=== PATIENT | female | born 1950 | race Caucasian/White ===

== ENCOUNTER → 2017-11-15 11:36 | Outpatient (CLI) | payer MEDICARE, OTHER, SELFPAY ==
--- NOTE | 2017-11-15 11:43 | HPBI_ITS ---
MAMMOGRAPHY - UNILATERAL SCREENING: LEFT BREAST REASON FOR EXAM: Female, 67 years old. Routine annual screening examination (unilateral). PERTINENT HISTORY: Personal history of breast cancer. Prior right mastectomy. Mother with breast cancer. TECHNIQUE: Digital unilateral breast juarez (3D mammographic acquisition) in the CC and MLO projections. 2-D mediolateral oblique (MLO) and craniocaudad (CC) views of both breasts were obtained. CAD: Full Field Digital Mammography with Computer Added Detection was performed. COMPARISON: Comparison is made with prior outside examination dated November 12, 2016 and May 21, 2014. FINDINGS: Breast Composition: There are scattered areas of fibroglandular density. There are no dominant masses or suspicious calcifications. A tissue clip marker is seen along the anterior Lateral aspect of the left breast. A tissue clip marker is also seen in the retroareolar region of the breast. No other significant abnormalities are identified. There has been no significant change since the prior study. HPBI/UNILAT LT SCRN W/CAD IMPRESSION: Stable unilateral screening mammogram. Yearly follow-up mammogram recommended. (A) ASSESSMENT CATEGORY: BIRADS Category 2: Benign. A letter regarding these results will be sent to the patient by the facility within 30 days. Approximately 10% of breast cancers are not detected by mammography. A normal mammogram should not delay biopsy of a clinically suspicious abnormality. [id number] Electronically Signed: Mitch Newman MD at 13:32 EST Tel [phone], Service support ,
== END ==
PROVIDERS: Family Provider Student in an Organized Health Care Education/Training Program; PCP Student in an Organized Health Care Education/Training Program; Visit Provider Nurse Practitioner
DX: Z12.31 Encounter for screening mammogram for malignant neoplasm of breast (principal); C50.911 Malignant neoplasm of unspecified site of right female breast
CPT/HCPCS: 77061; 77063; 77067; G0279

== ENCOUNTER 2019-01-07 10:35 | Observation (INO) | payer MEDICARE, OTHER, SELFPAY ==
[2019-01-07 10:36] VITALS: BP 135/83; PULSE 93; RESP 18; TEMP 36.8; O2SAT 98; BMI 22.1
--- NOTE | 2019-01-07 11:00 | ED.DCSUM_ITS ---
- ER Visit Summary Date of Service: 01/07/19 Chief Complaint: Vomiting and diarrhea History of Present Illness: The patient is a 68 F who presents for 6 days of vomiting and diarrhea. Patient is diabetic and states that she did not eat as she should have 6 days ago, resulting in her not feeling well and having subsequent diarrhea and vomiting. The diarrhea is loose stools without blood or mucus after every episode of oral intake. Patient states she is having improvement of her symptoms since yesterday, however now she feels dizzy, lightheadedness, and has a headache. She also has some fear fatigue. She had a fever at the onset of her symptoms but states that has resolved. She denies chest pain, shortness of breath, urinary symptoms, or any other complaints at this time. Patient has history of Campylobacter in November that was treated with 2 courses of antibiotics. She states that the symptoms are nothing like her symptoms at that time. She is has history of breast cancer status post mastectomy. She is not on blood thinners. Physical Examination: Vital signs: afebrile, hemodynamically stable, no hypoxia on room air General: well nourished, well developed, in no distress Skin: warm, dry, no rash, no pallor HEENT: normocephalic and atraumatic; PERRL, EOMI, dry mucous membranes Cardiovascular: regular rate and rhythm without murmurs, no peripheral edema, 2+ pulses all distal extremities Respiratory: No increased work of breathing, lungs are clear to auscultation bilaterally, no rales, rhonchi or wheezing Abdominal: Abdomen is soft, nontender with normoactive bowel sounds, no guarding or rebound, no masses MSK: Moves all extremities, no deformities, normal strength Neuro: Awake and alert, oriented ?4. No facial droop, sensation and motor function intact and symmetric Test Results: Abnormal Lab Results 01/07/19 01/07/19 01/07/19 11:15 11:15 12:27 WBC 6.9 RBC 4.61 Hgb 13.2 Hct 37.0 MCV 80.3 L MCH 28.6 MCHC 35.7 RDW 13.2 RDW Differential 37.7 Plt Count 306 MPV 9.3 Immature Gran % (Auto) 0.400 Neut % (Auto) 81.2 H Lymph % (Auto) 10.1 L [place] % (Auto) 7.8 Eos % (Auto) 0.1 Baso % (Auto) 0.4 Absolute Neuts (auto) 5.6 Absolute Lymphs (auto) 0.70 L Total Counted Not Reportable Sodium 134 L Potassium 2.1 L* Chloride 101 Carbon Dioxide 22.0 Anion Gap 11 BUN 36 H Creatinine 1.50 H Estim Creat Clear Calc 28.78 Est GFR (MDRD) Af Amer 45 L Est GFR (MDRD) Non-Af 37 L BUN/Creatinine Ratio 24.0 H Glucose 188 H Calcium 9.1 Total Bilirubin 0.40 AST 19 ALT 24 Alkaline Phosphatase 79 Total Protein 7.4 Albumin 3.2 Globulin 4.2 Albumin/Globulin Ratio 0.8 L Lipase 162 Urine Color Yellow Urine Clarity Clear Urine pH 5.0 Ur Specific [place] 1.015 Urine Protein 30 H Urine Glucose (UA) Normal Urine Ketones Negative Urine Occult Blood 25 H Urine Nitrite Negative Urine Bilirubin Negative Urine Urobilinogen Normal Ur Leukocyte Esterase 100 H Urine RBC 0 SEEN Urine WBC 0-5 SEEN Ur Squamous Epith Cells 0-5 SEEN Ur Transition Epith Cell 0-5 SEEN Urine Bacteria 1+ Hyaline Casts 5-10 SEEN Urine Mucus 0 SEEN Medications Given Potassium Chloride () 10 meq in 100 mls @ 100 mls/hr IV BOLUS Q1H MASHA Stop: 01/07/19 16:14 Lactated Ringer's () 1,000 mls @ 999 mls/hr IV .Q1H1M MASHA Stop: 01/07/19 13:05 Discontinued Medications Sodium Chloride () 1,000 mls @ 1,000 mls/hr IV .Q1H ONE Stop: 01/07/19 11:55 Last Admin: 01/07/19 11:17 Dose: 1,000 mls/hr Ketorolac Tromethamine (Toradol) 15 mg IV X1 ONE Stop: 01/07/19 10:57 Last Admin: 01/07/19 11:17 Dose: 15 mg Ondansetron HCl (Zofran) 4 mg IV X1 ONE Stop: 01/07/19 10:57 Last Admin: 01/07/19 11:17 Dose: 4 mg Emergency Department Course and Treatment: Patient presents for evaluation after 6 days of vomiting and diarrhea. Patient has no overt abdominal pain. At this time she is feeling dizzy, lightheaded, has a headache and feels fatigued. She states her vomiting and diarrhea have been improving and she has not had those symptoms today. Patient was given IV fluids for hydration. Patient was given Zofran for her nausea and Toradol for her headache. Lab work was performed to evaluate for any concerning diabetic crisis secondary to patient's ongoing GI symptoms and for any electrolyte derangements or dehydration secondary to poor oral intake this week. Patient had severe hypokalemia of 2.1. An EKG showed a sinus rhythm without any concerning changes related to electrolyte derangements. Patient's labs were consistent with dehydration. She had no anion gap, no significant hyper hyperglycemia (blood sugar 188), and had a normal bicarb. Urine is negative for ketones. Patient's labs were not concerning for any significant hyperglycemic or hypoglycemic crisis. Patient was started on IV potassium. Oral potassium was not given at this time due to concern for exacerbating nausea. Patient was discussed with Dr. Mckinney [facility] further management of dehydration and severe hypokalemia. Treatment Plan: [] Disposition: [] Impression: Hypokalemia, dehydration This note was generated with [employer] dictation software. It may contain incorrect words, spelling, and punctuation that were not noted in review of the chart prior to signing ED Disposition - Plan for ED Patient: Referrals: Star Lara DO [Primary Care Provider] -
[2019-01-07] MEDS: Ketorolac 30 MG/ML Syringe 15 MG IV (11:17)
[2019-01-07] MEDS: 0.9% Normal Saline 1,000 ML 1000 ML IV (11:17)
[2019-01-07] MEDS: Ondansetron 4 MG/2 ML Vial IV (11:17)
[2019-01-07 11:31] LABS: Absolute Neutrophil Count 5.6 X10^3/uL (2.0-7.7); Basophil# 0.03 X10^3/uL; Basophil% 0.4 % (0-1); Eosinophil# 0.01 X10^3/uL; Eosinophils% 0.1 % (0-5); Hemoglobin 13.2 g/dl (12.0-15.0); Lymphocyte % 10.1 % (19-41); Mean Corp Hgb Conc 35.7 g/gl (32-36); Mean Corpuscular Hgb 28.6 pg (27.0-32.0); Mean Corpuscular Volume 80.3 fL (81-99); Mean Platelet Vol. 9.3 fl (6.2-12.0); Monocyte# 0.54 X10^3/uL; Monocyte% 7.8 % (0-10); Neutrophil # 5.61 X10^3/uL (2.7-7.7); Neutrophil % 81.2 % (47-70); Platelet Count 306 K/mm3 (150-450); RBC Distribution Width CV 13.2 % (11.6-14.6); RBC Distribution Width SD 37.7 fl (35.1-43.9); Red Blood Count 4.61 M/mm3 (4.2-5.4); White Blood Count 6.9 K/mm3 (4.4-11.0)
[2019-01-07 11:35] LABS: POSITIVE COUNT NO; POSITIVE DIFFERENTIAL NO; POSITIVE MORPHOLOGY NO
[2019-01-07 11:53] LABS: ALB/GLOB Ratio 0.8 RATIO (0.9-2.4); AST(SGOT) 19 U/L (15-37); Alanine Aminotransfer ALT/SGPT 24 U/L (13-56); Albumin, Serum 3.2 g/dL (3.2-5.0); Alkaline Phosphatase 79 U/L (45-117); Anion Gap 11 (5-15); BUN 36 mg/dL (7-18); Calcium,Total 9.1 mg/dL (8.5-10.1); Chloride 101 mmol/L (98-107); EST Glomerular Filtration Rate 37 mL/min (>60); Est Glom Filt Rate - Afr Amer 45 mL/min (>60); Estimated Creatinine Clearance 28.78 ml/min; Globulin 4.2 g/dL (2.2-4.2); Glucose 188 mg/dL (74-106); Lipase 162 U/L (73-393); Potassium 2.1 mmol/L (3.5-5.1); Protein, Total 7.4 g/dL (6.4-8.2); Sodium Level 134 mmol/L (136-145)
--- NOTE | 2019-01-07 12:01 | EKG12_ITS ---
Test Reason : LOW POTASSIUM Blood Pressure : / mmHG Vent. Rate : 074 BPM Atrial Rate : 074 BPM P-R Int : 134 ms QRS Dur : 092 ms QT Int : 410 ms P-R-T Axes : 076 -03 024 degrees QTc Int : 455 ms Normal sinus rhythm Normal ECG Confirmed by GALLITO DRAKE, YAIR ([id number]), film editor VERO RAMIREZ ([id number]) on 01/10/2019 1:21:55 PM Referred By: Pete Mckinney Confirmed By:YAIR CONTI MD
[2019-01-07 12:31] LABS: Mucous, Urine 0 SEEN /hpf (<or=2+); Red Blood Cells-Urine 0 SEEN /hpf (0-5)
[2019-01-07 12:54] LABS: Color, Urine Yellow (Yellow); Glucose, Dipstick Normal (Normal); Ketone-Dipstick Negative (Negative); Leukocyte Esterase-Dipstick 100 /ul (Negative); Nitrite-Dipstick Negative (Negative); Occult Blood-Urine 25 /ul (Negative); Protein-Dipstick 30 mg/dl (Negative); Specific Gravity, Urine 1.015 (1.002-1.030); Urine Bilirubin Dipstick Negative (Negative); Urine Clarity Clear (Clear); Urine Urobilinogen Normal (Normal)
[2019-01-07 13:01] LABS: Bacteria 1+ /hpf (None Seen); Hyaline Cast 5-10 SEEN /lpf (0-5); Squamous Epithelial Cells - UA 0-5 SEEN /hpf (5-10); Transitional Epithelial - Ur 0-5 SEEN /hpf (0-5); White Blood Cells 0-5 SEEN /hpf (0-5)
--- NOTE | 2019-01-07 13:01 | NURSING ---
MED SURG ORA GASTROENTERITIS
--- NOTE | 2019-01-07 13:01 | NURSING ---
DR PAYAN IN ER
--- NOTE | 2019-01-07 13:18 | HP.PCM_ITS ---
Problem List (1) Near syncope Status: Acute (2) Hypokalemia Status: Acute (3) Acute gastroenteritis Status: Acute (4) DM type 2 (diabetes mellitus, type 2) Status: Chronic (5) Breast cancer, right breast Status: Acute (6) History of modified radical mastectomy of right breast Status: Acute History of Present Illness Date of Admission: 01/07/19 Chief Complaint: Nausea, vomiting and diarrhea for last 6 days The patient is a 68 year old F with history of type 2 diabetes mellitus came to ED with dizzy, lightheaded with generalized weakness. She has nausea, vomiting and diarrhea for last 6 days about 5 times daily. Vomiting and diarrhea is better today but she is feeling dizzy. Denies fever or chills. Denies abdominal pain/cramps or GI bleed. No flulike symptoms. In ED, basic blood work shows sodium 134, K2.1, BUN 36, creatinine 1.5. UA shows nitrite negative, LE 100. She denies lower urinary tract symptoms. Past Medical History Past Medical History (Chronic Problems): Chronic Problems DM type 2 (diabetes mellitus, type 2) (Chronic) Allergies No Known Allergies Allergy (Verified 01/07/19 10:38) Home Medications: Ambulatory Orders Medication Instructions Recorded Atorvastatin Calcium [Lipitor] 20 mg PO QHS 08/24/16 Hydrochlorothiazide [Hctz] 12.5 mg PO PRN PRN 08/24/16 Lansoprazole [Prevacid] 15 mg PO DAILY PRN 08/24/16 Lisinopril 10 mg PO DAILY 08/24/16 Metformin [Metformin HCl] 750 mg PO BID 08/24/16 Anastrozole [Arimidex] 1 mg PO DAILY 05/03/17 Metoprolol Tartrate [Lopressor 12.5 mg PO DAILY 05/03/17 (Beta Monique)] Allopurinol 100 mg PO DAILY #30 tablet 05/04/17 Smoking Status: Never smoker - *Family History Paternal History Items: Heart Disease - of massive NE Review of Systems Constitutional: Reports: Weakness HEENT: Denies: Head Aches, Sinus Congestion, Sinus Drainage Cardiovascular: Reports: Light Headedness. Denies: Chest Pain, Palpitations, Syncope Respiratory: Denies: Cough, Shortness of breath at rest, Sputum production Gastrointestinal: Reports: Diarrhea, Nausea, Vomiting. Denies: Abdominal Pain, Hematemesis, Hematochezia, Melena Genitourinary: Reports: - - Having less amount of urination. Denies: Dysuria, Frequency Musculoskeletal: Denies: Joint Pain, Joint Tenderness Skin: Denies: Rash, Wounds Neurological: Denies: Numbness, Tingling, Focal weakness Psychiatric: Denies: Anxiety, Depression, Homicidal Ideations, Suicidal Ideations Hematologic/ Lymphatic: Denies: Easy Bruising, Easy Bleeding VTE Information - Inpt Only VTE Present on Admission: No VTE Mechan Device Prophylaxis: None VTE Pharm Prophylaxis ordered?: Yes Patient Problems: Active and Suspected Problems Near syncope (Acute) Hypokalemia (Acute) Acute gastroenteritis (Acute) Breast cancer, right breast (Acute) History of modified radical mastectomy of right breast (Acute) - Physical Exam General: Alert, Oriented x3, Cooperative HEENT: Atraumatic, PERRLA, EOMI, Normocephalic Oral: Dry Mucosa Neck: Supple, No JVD, Negative Carotid Bruits Lungs: Clear to auscultation, Normal air movement, No wheeze, No rales Cardiovascular: Regular rate, Normal S1, Normal S2, No murmurs, Murmur - Systolic murmur present Abdomen: Bowel Sounds Present, Soft, Non Tender, Non-Distended Extremities: No edema, Capillary Refill Less than 3 Seconds Skin: No rashes, No breakdown Musculoskeletal: No Tenderness to Palpation of Joints or Extremities Lymphatic: No Cervical, Supraclavicular, or Inguinal Adenopathy Neurological: Cranial nerves II-XII grossly intact, Deep Tendon Reflexes 2+/4 and Symmetrical, Neuro grossly intact, Motor Exam 5/5 strength throughout Psych/Mental Status: Normal Affect, Appropriate Vital Signs Temp Pulse Resp BP Pulse Ox 98.2 F 93 18 135/83 H 98 01/07/19 10:36 01/07/19 10:36 01/07/19 10:36 01/07/19 10:36 01/07/19 10:36 Oxygen Delivery Method Room Air Weight: 121 lb Body Mass Index (BMI) 22.1 Finger Stick Blood Glucose 135 Laboratory Tests Past 24 Hrs 01/07/19 01/07/19 01/07/19 11:15 11:15 11:15 WBC 6.9 RBC 4.61 Hgb 13.2 Hct 37.0 MCV 80.3 L MCH 28.6 MCHC 35.7 RDW 13.2 RDW Differential 37.7 Plt Count 306 MPV 9.3 Immature Gran % (Auto) 0.400 Neut % (Auto) 81.2 H Lymph % (Auto) 10.1 L [place] % (Auto) 7.8 Eos % (Auto) 0.1 Baso % (Auto) 0.4 Absolute Neuts (auto) 5.6 Absolute Lymphs (auto) 0.70 L Total Counted Not Reportable Sodium 134 L Potassium 2.1 L* Chloride 101 Carbon Dioxide 22.0 Anion Gap 11 BUN 36 H Creatinine 1.50 H Estim Creat Clear Calc 28.78 Est GFR (MDRD) Af Amer 45 L Est GFR (MDRD) Non-Af 37 L BUN/Creatinine Ratio 24.0 H Glucose 188 H Calcium 9.1 Magnesium Pending Total Bilirubin 0.40 AST 19 ALT 24 Alkaline Phosphatase 79 Total Protein 7.4 Albumin 3.2 Globulin 4.2 Albumin/Globulin Ratio 0.8 L Lipase 162 Urine Color Urine Clarity Urine pH Ur Specific [place] Urine Protein Urine Glucose (UA) Urine Ketones Urine Occult Blood Urine Nitrite Urine Bilirubin Urine Urobilinogen Ur Leukocyte Esterase Urine RBC Urine WBC Ur Squamous Epith Cells Ur Transition Epith Cell Urine Bacteria Hyaline Casts Urine Mucus 01/07/19 12:27 WBC RBC Hgb Hct MCV MCH MCHC RDW RDW Differential Plt Count MPV Immature Gran % (Auto) Neut % (Auto) Lymph % (Auto) [place] % (Auto) Eos % (Auto) Baso % (Auto) Absolute Neuts (auto) Absolute Lymphs (auto) Total Counted Sodium Potassium Chloride Carbon Dioxide Anion Gap BUN Creatinine Estim Creat Clear Calc Est GFR (MDRD) Af Amer Est GFR (MDRD) Non-Af BUN/Creatinine Ratio Glucose Calcium Magnesium Total Bilirubin AST ALT Alkaline Phosphatase Total Protein Albumin Globulin Albumin/Globulin Ratio Lipase Urine Color Yellow Urine Clarity Clear Urine pH 5.0 Ur Specific [place] 1.015 Urine Protein 30 H Urine Glucose (UA) Normal Urine Ketones Negative Urine Occult Blood 25 H Urine Nitrite Negative Urine Bilirubin Negative Urine Urobilinogen Normal Ur Leukocyte Esterase 100 H Urine RBC 0 SEEN Urine WBC 0-5 SEEN Ur Squamous Epith Cells 0-5 SEEN Ur Transition Epith Cell 0-5 SEEN Urine Bacteria 1+ Hyaline Casts 5-10 SEEN Urine Mucus 0 SEEN Assessment/Plan All Active Problems Near syncope (Acute) Hypokalemia (Acute) Acute gastroenteritis (Acute) Breast cancer, right breast (Acute) History of modified radical mastectomy of right breast (Acute) The patient is a 68 year old F with history of type 2 diabetes mellitus came to ED with dizzy, lightheaded with generalized weakness. She has nausea, vomiting and diarrhea for last 6 days about 5 times daily. Vomiting and diarrhea is better today but she is feeling dizzy. Denies fever or chills. Denies abdominal pain/cramps or GI bleed. No flulike symptoms. In ED, basic blood work shows sodium 134, K2.1, BUN 36, creatinine 1.5. UA shows nitrite negative, LE 100. She denies lower urinary tract symptoms. 1. Near syncope most probably secondary to hypovolemia: Patient is being admitted on [facility] on telemetry. IV fluid normal saline. Orthostatic vitals. 2. Acute hypokalemia mostly secondary to nausea/vomiting and diarrhea: On IV n.p.o. potassium replacement. Magnesium is pending. EKG shows normal sinus rhythm at [address]-T changes. QTc 455 ms. No significant EKG changes of hypokalemia. 3. Acute gastroenteritis most probably viral: Stool for C. difficile, enteric bacteriology panel and stool for WBC ordered. Asymptomatic bacteriuria: UA shows bacteria 1+, LE 100, dullness 0-5. Patient does not have symptoms of burning micturition or increased frequency urgency. 4. Acute kidney injury secondary to hypovolemia, prerenal: Baseline creatinine runs around 1.0. Currently 1.5. BUN 36. Hold metformin, lisinopril and diuretic. 5 Diabetes mellitus type 2: Accu-Chek before meals and at bedtime and cover with NovoLog sliding scale. 6. Other comorbidities include right CA breast status post modified radical mastectomy and GERD. Home medication reconciliation done. DVT prophylaxis: On Lovenox 40 mg subcu daily. Laboratory Results 01/07/19 11:15: WBC 6.9, RBC 4.61, Hgb 13.2, Hct 37.0, MCV 80.3 L, MCH 28.6, MCHC 35.7, RDW 13.2, RDW Differential 37.7, Plt Count 306, MPV 9.3, Immature Gran % (Auto) 0.400, Neut % (Auto) 81.2 H, Lymph % (Auto) 10.1 L, [place] % (Auto) 7.8, Eos % (Auto) 0.1, Baso % (Auto) 0.4, Absolute Neuts (auto) 5.6, Absolute Lymphs (auto) 0.70 L, Total Counted Not Reportable 01/07/19 11:15: Sodium 134 L, Potassium 2.1 L*, Chloride 101, Carbon Dioxide 22.0, Anion Gap 11, BUN 36 H, Creatinine 1.50 H, Estim Creat Clear Calc 28.78, Est GFR (MDRD) Af Amer 45 L, Est GFR (MDRD) Non-Af 37 L, BUN/Creatinine Ratio 24.0 H, Glucose 188 H, Calcium 9.1, Total Bilirubin 0.40, AST 19, ALT 24, Alkaline Phosphatase 79, Total Protein 7.4, Albumin 3.2, Globulin 4.2, Albumin/Globulin Ratio 0.8 L, Lipase 162 01/07/19 11:15: Magnesium Pending 01/07/19 12:27: Urine Color Yellow, Urine Clarity Clear, Urine pH 5.0, Ur Specific [place] 1.015, Urine Protein 30 H, Urine Glucose (UA) Normal, Urine Ketones Negative, Urine Occult Blood 25 H, Urine Nitrite Negative, Urine Bilirubin Negative, Urine Urobilinogen Normal, Ur Leukocyte Esterase 100 H, Urine RBC 0 SEEN, Urine WBC 0-5 SEEN, Ur Squamous Epith Cells 0-5 SEEN, Ur Transition Epith Cell 0-5 SEEN, Urine Bacteria 1+, Hyaline Casts 5-10 SEEN, Urine Mucus 0 SEEN Code Visit OBSV E&M: [id number] Initial observation care L3
[2019-01-07] MEDS: Lactated Ringers 1,000 ML 999 ML IV (13:29)
[2019-01-07] MEDS: Potassium Chloride 10mEq/100mL 10 MEQ/100 ML IV.SOLN. 100 MEQ IV BOLUS ×4 (13:29→16:43)
[2019-01-07 13:32] VITALS: BP 147/66; PULSE 75; RESP 13; O2SAT 100
[2019-01-07 13:54] LABS: Magnesium 1.6 mg/dL (1.6-2.6)
[2019-01-07 15:00] VITALS: BP 123/63; PULSE 73; RESP 18; TEMP 36.6; O2SAT 100
[2019-01-07 15:03] VITALS: BMI 23.0
[2019-01-07] MEDS: 0.9% Normal Saline 1,000 ML 150 ML IV (16:51)
[2019-01-07 17:10] LABS: Bedside Glucose 100 mg/dL (70-110)
[2019-01-07 19:36] VITALS: PULSE 74
[2019-01-07 21:00] VITALS: BP 120/54; PULSE 74; RESP 16; TEMP 36.9; O2SAT 100
[2019-01-07 22:00] VITALS: PULSE 76
[2019-01-07] MEDS: Atorvastatin Calcium 20 MG Tablet PO (22:07)
[2019-01-07 22:11] LABS: Bedside Glucose 129 mg/dL (70-110)
[2019-01-08] VITALS (7 sets, daily range): BP systolic 114–128; BP diastolic 63–70; PULSE 59–82; RESP 14–18; TEMP 36.4–37; O2SAT 98–100
[2019-01-08] MEDS: Acetaminophen 325 MG Tablet 650 MG PO (05:06)
[2019-01-08 05:36] LABS: Bedside Glucose 117 mg/dL (70-110)
[2019-01-08 06:00] LABS: Absolute Lymphocyte Count 1.14 X10^3/ul (0.83-4.51); Absolute Neutrophil Count 2.9 X10^3/uL (2.0-7.7); Basophil# 0.02 X10^3/uL; Basophil% 0.4 % (0-1); Eosinophil# 0.07 X10^3/uL; Eosinophils% 1.5 % (0-5); Hematocrit 30.1 % (37-47); Hemoglobin 10.3 g/dl (12.0-15.0); Lymphocyte # 1.14 X10^3/ul (4.0); Lymphocyte % 24.9 % (19-41); Mean Corp Hgb Conc 34.2 g/gl (32-36); Mean Corpuscular Hgb 28.3 pg (27.0-32.0); Mean Corpuscular Volume 82.7 fL (81-99); Mean Platelet Vol. 8.6 fl (6.2-12.0); Monocyte# 0.44 X10^3/uL; Monocyte% 9.6 % (0-10); Neutrophil # 2.88 X10^3/uL (2.7-7.7); Neutrophil % 63.2 % (47-70); Platelet Count 232 K/mm3 (150-450); RBC Distribution Width CV 13.7 % (11.6-14.6); RBC Distribution Width SD 42.2 fl (35.1-43.9); Red Blood Count 3.64 M/mm3 (4.2-5.4); White Blood Count 4.6 K/mm3 (4.4-11.0)
[2019-01-08 06:16] LABS: POSITIVE COUNT NO; POSITIVE DIFFERENTIAL NO; POSITIVE MORPHOLOGY NO
[2019-01-08 06:41] LABS: Anion Gap 6 (5-15); BUN 23 mg/dL (7-18); BUN/Creat Ratio 26.9 RATIO (10-20); Calcium,Total 8.4 mg/dL (8.5-10.1); Chloride 110 mmol/L (98-107); Creatinine, Serum 0.85 mg/dL (0.55-1.02); EST Glomerular Filtration Rate 70 mL/min (>60); Est Glom Filt Rate - Afr Amer 85 mL/min (>60); Glucose 110 mg/dL (74-106); Potassium 3.3 mmol/L (3.5-5.1); Sodium Level 141 mmol/L (136-145)
[2019-01-08] MEDS: Allopurinol 100 MG Tablet PO (07:34)
[2019-01-08] MEDS: 0.9% NaCl Peripheral Flush Adult/Peds IV (08:52)
[2019-01-08] MEDS: Metoprolol Tartrate 25 MG Tablet 12.5 MG PO (08:53)
[2019-01-08] MEDS: Lisinopril 10 MG Tablet PO (08:53)
[2019-01-08] MEDS: Anastrozole 1 MG Tablet PO (08:53)
[2019-01-08] MEDS: Famotidine 20 MG Tablet PO (08:54)
[2019-01-08] MEDS: 0.9% Normal Saline 1,000 ML 500 ML IV (09:04)
--- NOTE | 2019-01-08 09:15 | DCINST_ITS ---
- Discharge Diagnoses Current Active Problems: Current Active and Chronic Problems Near syncope (Acute) Hypokalemia (Acute) Acute gastroenteritis (Acute) DM type 2 (diabetes mellitus, type 2) (Chronic) Breast cancer, right breast (Acute) History of modified radical mastectomy of right breast (Acute) You will use the following diet at home:: Calorie/Carbohydrate Controlled (specify 1200, 1400, etc) Your food should be the consistency of: Regular Discharge Activity: May Not Drive - FOR 2-3 DAYS, May not drive while taking narcotic pain medications. Weight Bearing Status: Weight bearing as tolerated Call your doctor if you observe: Fever of 101 or Higher, Inability to have a bowel movement, Shortness of breath, Chest pain, Increased palpitations (irregular heartbeat) Allergies/Adverse Reactions: Allergies No Known Allergies Allergy (Verified 01/07/19 10:38) Medications to take at Discharge Atorvastatin Calcium [Lipitor] 20 mg PO QHS 08/24/16 Hydrochlorothiazide [Hctz] 12.5 mg PO PRN PRN 08/24/16 Lansoprazole [Prevacid] 15 mg PO DAILY PRN 08/24/16 Lisinopril 10 mg PO DAILY 08/24/16 Metformin [Metformin HCl] 750 mg PO BID 08/24/16 Anastrozole [Arimidex] 1 mg PO DAILY 05/03/17 Metoprolol Tartrate [Lopressor (beta amy)] 12.5 mg PO DAILY 05/03/17 Allopurinol 100 mg PO DAILY #30 tablet 05/04/17 Primary Care Physician: Star Lara DO [Primary Care Provider] - Please follow up with your Primary Care Physician in: IN 1-2 WEEK Test Results: Test results from this visit will be discussed in further detail at your follow- up appointment, if applicable.
--- NOTE | 2019-01-08 09:16 | DS.PCM_ITS ---
Discharge Date and Diagnosis Date of Admission: 01/07/19 Date of Discharge: 01/08/19 - Primary Discharge Diagnosis Active and Suspected Problems Near syncope (Acute) Hypokalemia (Acute) Acute gastroenteritis (Acute) Breast cancer, right breast (Acute) History of modified radical mastectomy of right breast (Acute) - Secondary Discharge Diagnosis Chronic Problems DM type 2 (diabetes mellitus, type 2) (Chronic) Hospital Course and Treatment Summary of Care Provided: [] The patient is a 68 year old F with history of type 2 diabetes mellitus came to ED with dizzy, lightheaded with generalized weakness. She has nausea, vomiting and diarrhea for last 6 days about 5 times daily. Vomiting and diarrhea is better today but she is feeling dizzy. Denies fever or chills. Denies abdomi nal pain/cramps or GI bleed. No flulike symptoms. In ED, basic blood work shows sodium 134, K2.1, BUN 36, creatinine 1.5. UA shows nitrite negative, LE 100. She denies lower urinary tract symptoms. 1. Near syncope most probably secondary to hypovolemia: Patient is being admitted on [facility] on telemetry. IV fluid normal saline. Vital signs are stable. No hypotension. 2. Acute hypokalemia mostly secondary to nausea/vomiting and diarrhea: EKG shows normal sinus rhythm at [address]-T changes. QTc 455 ms. No significant EKG changes of hypokalemia. Potassium being replaced. Repeat potassium was 3.3 for which 2 doses of K. Dur 40 M EQ. Magnesium 1.6. Magnesium 400 mg 1 dose given. 3. Acute gastroenteritis Most probably secondary to Salmonella: She had mild diarrhea and is almost resolved with one yesterday and formed stool today. Occult stool blood was positive. Stool for WBC positive. C. difficile negative. There is drop in hemoglobin from 13.2-10.3 but she was also hemoconcentrated and dehydrated during admission. She did not require blood transfusion. Hemodynamically stable. Antibiotic not indicated for mild Salmonella infection with minimal or asymptomatic patient Asymptomatic bacteriuria: UA shows bacteria 1+, LE 100, dullness 0-5. Patient does not have symptoms of burning micturition or increased frequency urgency. UTI ruled out 4. Acute kidney injury secondary to hypovolemia, prerenal: Baseline creatinine runs around 1.0. Currently 1.5. BUN 36. Hold metformin, lisinopril and diuretic. Resolved. Repeat creatinine 0.85. 5 Diabetes mellitus type 2: Accu-Chek before meals and at bedtime and cover with NovoLog sliding scale. 6. Other comorbidities include right CA breast status post modified radical mastectomy and GERD. Home medication reconciliation done. DVT prophylaxis: On Lovenox 40 mg subcu daily. Discharge medication reconciliation done. Discharge follow-up instructions completed. Discharge process discussed with the patient and all questions were answered to patient's satisfaction. Subjective: Seen and examined. Vitals are stable. Heart rate 74/min. No diarrhea. Patient had one soft bowel movement today. Yesterday she had one, loose bowel movement. - Physical Exam General: Alert, Oriented x3, Cooperative HEENT: Atraumatic, PERRLA, EOMI, Normocephalic Neck: Supple, No JVD, Negative Carotid Bruits Lungs: Clear to auscultation, Normal air movement Cardiovascular: Regular rate, Regular Rhythm, Normal S1, Normal S2, No murmurs Abdomen: Bowel Sounds Present, Soft, Non Tender, Non-Distended Extremities: No edema, Capillary Refill Less than 3 Seconds Skin: No rashes, No breakdown Musculoskeletal: No Tenderness to Palpation of Joints or Extremities, Arthritic Changes Neurological: Cranial nerves II-XII grossly intact Psych/Mental Status: Normal Affect, Appropriate Vital Signs Temp Pulse Resp BP Pulse Ox 97.5 F L 78 14 114/63 100 01/08/19 03:00 01/08/19 08:53 01/08/19 03:00 01/08/19 03:00 01/08/19 03:00 Oxygen Delivery Method Room Air Weight: 126 lb Body Mass Index (BMI) 23.0 Finger Stick Blood Glucose 135 Intake and Output for Last 24 Hours 01/06/19 01/07/19 01/08/19 23:59 23:59 23:59 Intake Total 1972 100 / 100 Output Total 200 / 200 Balance 1773 / 1773 100 / 100 Microbiology Past 72 Hours 01/07/19 19:45 C. difficile DNA Amplification - Final Stool 01/07/19 19:45 Stool Occult Blood (LUZ MARINA) - Final Stool Occult Blood Positive 01/07/19 19:45 Stool Lactoferrin - Final Stool Laboratory Tests Past 24 Hrs 01/07/19 01/07/19 01/07/19 11:15 11:15 11:15 WBC 6.9 RBC 4.61 Hgb 13.2 Hct 37.0 MCV 80.3 L MCH 28.6 MCHC 35.7 RDW 13.2 RDW Differential 37.7 Plt Count 306 MPV 9.3 Immature Gran % (Auto) 0.400 Neut % (Auto) 81.2 H Lymph % (Auto) 10.1 L [place] % (Auto) 7.8 Eos % (Auto) 0.1 Baso % (Auto) 0.4 Absolute Neuts (auto) 5.6 Absolute Lymphs (auto) 0.70 L Total Counted Not Reportable Sodium 134 L Potassium 2.1 L* Chloride 101 Carbon Dioxide 22.0 Anion Gap 11 BUN 36 H Creatinine 1.50 H Estim Creat Clear Calc 28.78 Est GFR (MDRD) Af Amer 45 L Est GFR (MDRD) Non-Af 37 L BUN/Creatinine Ratio 24.0 H Glucose 188 H Calcium 9.1 Magnesium 1.6 Total Bilirubin 0.40 AST 19 ALT 24 Alkaline Phosphatase 79 Total Protein 7.4 Albumin 3.2 Globulin 4.2 Albumin/Globulin Ratio 0.8 L Lipase 162 TSH Urine Color Urine Clarity Urine pH Ur Specific [place] Urine Protein Urine Glucose (UA) Urine Ketones Urine Occult Blood Urine Nitrite Urine Bilirubin Urine Urobilinogen Ur Leukocyte Esterase Urine RBC Urine WBC Ur Squamous Epith Cells Ur Transition Epith Cell Urine Bacteria Hyaline Casts Urine Mucus 01/07/19 01/08/19 01/08/19 12:27 05:25 05:25 WBC 4.6 RBC 3.64 L Hgb 10.3 L Hct 30.1 L MCV 82.7 MCH 28.3 MCHC 34.2 RDW 13.7 RDW Differential 42.2 Plt Count 232 MPV 8.6 Immature Gran % (Auto) 0.400 Neut % (Auto) 63.2 Lymph % (Auto) 24.9 [place] % (Auto) 9.6 Eos % (Auto) 1.5 Baso % (Auto) 0.4 Absolute Neuts (auto) 2.9 Absolute Lymphs (auto) 1.14 Total Counted Not Reportable Sodium 141 Potassium 3.3 L Chloride 110 H Carbon Dioxide 25.0 Anion Gap 6 BUN 23 H Creatinine 0.85 Estim Creat Clear Calc 50.80 Est GFR (MDRD) Af Amer 85 Est GFR (MDRD) Non-Af 70 BUN/Creatinine Ratio 26.9 H Glucose 110 H Calcium 8.4 L Magnesium Total Bilirubin AST ALT Alkaline Phosphatase Total Protein Albumin Globulin Albumin/Globulin Ratio Lipase TSH 1.30 Urine Color Yellow Urine Clarity Clear Urine pH 5.0 Ur Specific [place] 1.015 Urine Protein 30 H Urine Glucose (UA) Normal Urine Ketones Negative Urine Occult Blood 25 H Urine Nitrite Negative Urine Bilirubin Negative Urine Urobilinogen Normal Ur Leukocyte Esterase 100 H Urine RBC 0 SEEN Urine WBC 0-5 SEEN Ur Squamous Epith Cells 0-5 SEEN Ur Transition Epith Cell 0-5 SEEN Urine Bacteria 1+ Hyaline Casts 5-10 SEEN Urine Mucus 0 SEEN POC Glucose 01/08/19 01/07/19 01/07/19 05:28 21:58 16:49 POC Glucose 117 H 129 H 100 Discharge Activity: May Not Drive - FOR 2-3 DAYS, May not drive while taking narcotic pain medications. Weight Bearing Status: Weight bearing as tolerated Call your doctor if you observe: Fever of 101 or Higher, Inability to have a bowel movement, Shortness of breath, Chest pain, Increased palpitations (irregular heartbeat) Home Medications: Medications to take at Discharge Atorvastatin Calcium [Lipitor] 20 mg PO QHS 08/24/16 Hydrochlorothiazide [Hctz] 12.5 mg PO PRN PRN 08/24/16 Lansoprazole [Prevacid] 15 mg PO DAILY PRN 08/24/16 Lisinopril 10 mg PO DAILY 08/24/16 Metformin [Metformin HCl] 750 mg PO BID 08/24/16 Anastrozole [Arimidex] 1 mg PO DAILY 05/03/17 Metoprolol Tartrate [Lopressor (beta amy)] 12.5 mg PO DAILY 05/03/17 Allopurinol 100 mg PO DAILY #30 tablet 05/04/17 Primary Care Physician: Star Lara DO [Primary Care Provider] - Please follow up with your Primary Care Physician in: IN 1-2 WEEK Medical Necessity - Tobacco Use Smoking Status: Never smoker Meaningful Use Info Meaningful Use Diagnoses (Choose all that apply): None applicable Code Visit OBSV E&M: 26459 Observation care discharge
[2019-01-08] MEDS: Magnesium Oxide 400 MG Tablet PO (10:12)
== END 2019-01-08 11:40 | disposition home or self-care (01) ==
LOC: ED 10:58 → MS3 13:30
PROVIDERS: Admitting Provider Internal Medicine; Emergency Provider Emergency Medicine; Family Provider Student in an Organized Health Care Education/Training Program; PCP Student in an Organized Health Care Education/Training Program; Referring Provider Internal Medicine; Visit Provider Internal Medicine
DX: R55 Syncope and collapse (principal); K52.9 Noninfective gastroenteritis and colitis, unspecified; D50.0 Iron deficiency anemia secondary to blood loss (chronic); E11.9 Type 2 diabetes mellitus without complications; Z85.3 Personal history of malignant neoplasm of breast; E87.6 Hypokalemia; E86.0 Dehydration; Z79.899 Other long term (current) drug therapy; Z79.84 Long term (current) use of oral hypoglycemic drugs; N17.9 Acute kidney failure, unspecified; K21.9 Gastro-esophageal reflux disease without esophagitis
CPT/HCPCS: 36415; 80048; 80053; 81001; 82274; 82962; 83630; 83690; 83735; 84443; 85025; 87493; 87506; 93005; 96361; 96374; 96375; 99218; 99284; J7030; J7040; J7120; A4216; G0378; J2405

== ENCOUNTER 2019-04-06 00:04 | Observation (INO) | payer MEDICARE, OTHER, SELFPAY ==
[2019-04-06] VITALS (9 sets, daily range): BP systolic 113–151; BP diastolic 56–82; PULSE 57–84; RESP 14–18; TEMP 36.7–36.9; O2SAT 96–100; BMI 22.1; BMI 23.3; BMI 23.4
--- NOTE | 2019-04-06 00:48 | RAD_ITS ---
STUDY: X-RAY CHEST REASON FOR EXAM: Female, 68 years old. Chest pain TECHNIQUE: 2 views COMPARISON: None. FINDINGS: The lungs are clear and expanded. There is no demonstrated pleural abnormality. Normal size heart. Normal mediastinum and meghan. Normal visualized pulmonary arteries. Normal visualized aortic arch and descending thoracic aorta. Degenerative changes of the thoracic spine Normal visualized ribs, clavicles, and shoulders. There is no demonstrated abnormality of the visualized soft tissue structures of the upper abdomen. RAD/Chest PA and Lateral IMPRESSION: No acute findings in the lungs Electronically Signed: Haider Arias MD at 1:58 EDT Tel , Service support ,
--- NOTE | 2019-04-06 00:48 | EKG12_ITS ---
Test Reason : CP Blood Pressure : / mmHG Vent. Rate : 067 BPM Atrial Rate : 067 BPM P-R Int : 148 ms QRS Dur : 100 ms QT Int : 394 ms P-R-T Axes : 059 001 033 degrees QTc Int : 416 ms Normal sinus rhythm Incomplete right bundle branch block Cannot rule out Anterior infarct , age undetermined Abnormal ECG Confirmed by CECILLE DRAKE, DELFINO ([id number]), newspaper copy editor TAMELA CASTANON ([id number]) on 04/09/2019 12:35:40 PM Referred By: AUGUSTINE Confirmed By:DELFINO ODEN MD
[2019-04-06 00:57] LABS: Absolute Lymphocyte Count 1.47 X10^3/uL (0.83-4.51); Absolute Neutrophil Count 4.2 X10^3/uL (2.0-7.7); Basophil# 0.03 X10^3/uL; Basophil% 0.5 % (0-1); Eosinophil# 0.21 X10^3/uL; Eosinophils% 3.3 % (0-5); Hemoglobin 12.2 g/dL (12.0-15.0); Lymphocyte # 1.47 X10^3/ul (4.0); Lymphocyte % 22.9 % (19-41); Mean Corp Hgb Conc 33.9 g/dL (32-36); Mean Corpuscular Hgb 29.2 pg (27.0-32.0); Mean Corpuscular Volume 86.1 fL (81-99); Mean Platelet Vol. 9.2 fl (6.2-12.0); Monocyte# 0.54 X10^3/uL; Monocyte% 8.4 % (0-10); NRBC Flagged by Analyzer 0 % (0-5); Neutrophil # 4.16 X10^3/uL (2.7-7.7); Neutrophil % 64.6 % (47-70); Platelet Count 265 K/mm3 (150-450); RBC Distribution Width CV 12.9 % (11.6-14.6); RBC Distribution Width SD 40.2 fl (35.1-43.9); Red Blood Count 4.18 M/mm3 (4.2-5.4); White Blood Count 6.4 K/mm3 (4.4-11.0)
[2019-04-06 01:10] LABS: Anion Gap 6 (5-15); BUN 25 mg/dL (7-18); BUN/Creat Ratio 32.6 RATIO (10-20); Calcium,Total 9.5 mg/dL (8.5-10.1); Chloride 102 mmol/L (98-107); Creatinine, Serum 0.77 mg/dL (0.55-1.02); EST Glomerular Filtration Rate 80 mL/min (>60); Est Glom Filt Rate - Afr Amer 96 mL/min (>60); Estimated Creatinine Clearance 43.18 ml/min; Glucose 111 mg/dL (74-106); Potassium 3.4 mmol/L (3.5-5.1); Sodium Level 133 mmol/L (136-145)
[2019-04-06] MEDS: Nitroglycerin SL (ED/IMG/CATH) 0.4 MG TABLET SUBLINGUAL (01:18)
--- NOTE | 2019-04-06 01:36 | ED.DCSUM_ITS ---
- ER Visit Summary Date of Service: 04/06/19 Chief Complaint: Chest pain History of Present Illness: The patient is a 68 F who states she really has not felt well all day. However about 3-1/2 hours ago she developed a dull upper chest pain which radiated to her left shoulder. She rates this as 5 out of 10. She complains of associated nausea, shortness of breath, diaphoresis. No vomiting or diarrhea. She does complain some headache. No fevers. No history of coronary disease but she does have a history of diabetes, hypertension, hyperlipidemia Physical Examination: Afebrile vitals unremarkable No distress Skin warm and dry Moist mucous membranes Heart regular rate and rhythm no murmur Lungs are clear without rales rhonchi or wheezing Abdomen soft and nontender Palpable radial pulses Extremities nontender without edema Alert Test Results: EKG shows normal sinus rhythm at a rate of 67 with no acute ischemic changes. Two-view chest x-rays read by me shows no acute process, radiology read pending. Labs notable for sodium 133, potassium 3.4. Troponin negative. Emergency Department Course and Treatment: Patient already took 2 baby aspirin before presentation to the emergency department. She was given sublingual nitroglycerin. She states this really just change the character of her pain. She no longer has any abdominal pain but just has some burning in the left shoulder but severity is about the same at 45. I do feel she needs repeat laboratory studies and likely stress testing. Patient will be discussed with the hospitalist and admitted. Treatment Plan: [] Disposition: Admit Impression: Chest pain This note was generated with [employer] dictation software. It may contain incorrect words, spelling, and punctuation that were not noted in review of the chart prior to signing ED Disposition - Plan for ED Patient: Referrals: Star Lara DO [Primary Care Provider] -
--- NOTE | 2019-04-06 01:40 | PCM.HP.STD ---
Problem List (1) Chest pain Status: Acute (2) Hypokalemia Status: Acute (3) DM type 2 (diabetes mellitus, type 2) Status: Chronic (4) History of modified radical mastectomy of right breast Status: Chronic (5) Breast cancer, right breast Status: Acute History of Present Illness Date of Admission: 04/06/19 Chief Complaint: chest pain The patient is a 68 year old F with a significant history of breast cancer status post radical mastectomy; DM Type II; hypertension and hyperlipidemia who presented to the emergency department with left-sided chest pain that started few hours before presentation. She describes her chest pain as aching. Her chest pain radiates to her left arm she described the pain in her left arm as a burning sensation. She denies any aggravating or ameliorating factors to the pain. Her symptoms started earlier on the day of presentation with nausea; fatigue; headache and diaphoresis. She took 2 tablets of baby aspirin that did not help her pain. At the emergency department she was given nitroglycerin that eased the pain somewhat. Patient reports that her father from heart attack at the age of 59. Patient was evaluated with stress test in 2011. Past Medical History Past Medical History (Chronic Problems): Chronic Problems DM type 2 (diabetes mellitus, type 2) (Chronic) History of modified radical mastectomy of right breast (Chronic) Allergies No Known Allergies Allergy (Verified 04/06/19 00:07) Home Medications: Ambulatory Orders Medication Instructions Recorded Atorvastatin Calcium [Lipitor] 20 mg PO QHS 08/24/16 Hydrochlorothiazide [Hctz] 12.5 mg PO PRN PRN 08/24/16 Lansoprazole [Prevacid] 15 mg PO DAILY PRN 08/24/16 Lisinopril 10 mg PO DAILY 08/24/16 Metformin [Metformin HCl] 750 mg PO BID 08/24/16 Anastrozole [Arimidex] 1 mg PO DAILY 05/03/17 Metoprolol Tartrate [Lopressor 12.5 mg PO DAILY 05/03/17 (beta amy)] Allopurinol 100 mg PO DAILY #30 tablet 05/04/17 Surgical History: hysterectomy - [facility], mastectomy Lives: Spouse/ Significant Other Smoking Status: Never smoker Alcohol: Rare - *Family History Paternal History Items: Heart Disease - of massive HI Maternal History Items: Cancer - Her mother had breast cancer at the age of 66, COPD - Her mother had COPD. However she was a smoker. Review of Systems Constitutional: Reports: Fatigue. Denies: Chills, Fever, Weight Change HEENT: Reports: Head Aches. Denies: Sinus Congestion, Sinus Drainage Cardiovascular: Reports: Chest Pain. Denies: Palpitations Respiratory: Denies: Cough, Shortness of breath at rest, Sputum production Gastrointestinal: Reports: Nausea. Denies: Abdominal Pain, Vomiting Genitourinary: Denies: Dysuria Musculoskeletal: Denies: Joint Pain, Joint Tenderness Skin: Denies: Rash, Wounds Neurological: Denies: Numbness, Tingling, Focal weakness Psychiatric: Denies: Anxiety, Depression, Homicidal Ideations, Suicidal Ideations Hematologic/ Lymphatic: Denies: Easy Bruising, Easy Bleeding VTE Information - Inpt Only VTE Present on Admission: No VTE Mechan Device Prophylaxis: None VTE Pharm Prophylaxis ordered?: Yes Patient Problems: Active and Suspected Problems Chest pain (Acute) - Physical Exam General: Alert, Oriented x3, Cooperative HEENT: Atraumatic, PERRLA, EOMI, Normocephalic Neck: Supple, No JVD, Negative Carotid Bruits Lungs: Clear to auscultation, Normal air movement Cardiovascular: Regular rate, No murmurs Abdomen: Bowel Sounds Present, Soft, Non Tender Extremities: No edema, Capillary Refill Less than 3 Seconds Skin: No rashes, No breakdown Musculoskeletal: No Tenderness to Palpation of Joints or Extremities Neurological: Cranial nerves II-XII grossly intact Psych/Mental Status: Normal Affect, Appropriate Vital Signs Temp Pulse Resp BP Pulse Ox 98.1 F 62 14 120/60 97 04/06/19 00:05 04/06/19 01:04 04/06/19 01:04 04/06/19 01:04 04/06/19 01:04 Oxygen Delivery Method Room Air Weight: 58.06 kg Body Mass Index (BMI) 23.3 Finger Stick Blood Glucose 135 Laboratory Tests Past 24 Hrs 04/06/19 04/06/19 00:30 00:30 WBC 6.4 RBC 4.18 L Hgb 12.2 Hct 36.0 L MCV 86.1 MCH 29.2 MCHC 33.9 RDW Std Deviation 40.2 RDW Coeff of [place] 12.9 Plt Count 265 MPV 9.2 Immature Gran % (Auto) 0.300 Neut % (Auto) 64.6 Lymph % (Auto) 22.9 [place] % (Auto) 8.4 Eos % (Auto) 3.3 Baso % (Auto) 0.5 Absolute Neuts (auto) 4.2 Absolute Lymphs (auto) 1.47 Absolute Nucleated RBC 0.00 Nucleated RBC % 0 Sodium 133 L Potassium 3.4 L Chloride 102 Carbon Dioxide 25.0 Anion Gap 6 BUN 25 H Creatinine 0.77 Estim Creat Clear Calc 43.18 Est GFR (MDRD) Af Amer 96 Est GFR (MDRD) Non-Af 80 BUN/Creatinine Ratio 32.6 H Glucose 111 H Calcium 9.5 Troponin I < 0.015 Assessment/Plan All Active Problems Near syncope (Resolved) Hypokalemia (Acute) Acute gastroenteritis (Resolved) Breast cancer, right breast (Acute) Chest pain (Acute) The patient is a 68 year old F with a significant history of breast cancer status post radical mastectomy; DM Type II; hypertension and hyperlipidemia who presented to the emergency department with left-sided chest pain that radiated to her left arm. Chest Pain Admit to a monitored bed on PCU Chest x-ray was interpreted by radiologist as no acute cardiopulmonary findings. CXR independently reviewed confirms no acute cardiopulmonary process. EKG independently reviewed confirms normal sinus rhythm with incomplete right bundle branch block as well as probable indeterminate infarct in lead V1 to V5. Old records reviewed showed : EKG on the 01/07/2019 showed normal sinus rhythm with no incomplete right bundle branch block but with Q waves in leads V1 AND V2 Stress echocardiogram on 05/04/2012 showed normal resting EKG with right bundle branch block. Normal resting echo with Definity. ASA 81 mg p.o. daily SL NTG 0.4 mg prn as needed for chest pain Morphine as needed for pain We will check lipid panel. Statin: Home Lipitor continued Serial cardiac enzymes Stat EKG as needed for chest pain Lisinopril and metoprolol continued Treadmill stress test in the AM if the cardiac enzymes are negative. Patient thinks she can tolerate walking on the treadmill. Hypokalemia On presentation potassium was mildly low. Replaced at the emergency department. Trend BMP Hyponatremia On presentation her sodium was mildly low at 133. This could be due to use of hydrochlorothiazide. Repeat BMP. Hypertension On presentation her blood pressure was fairly stable Metoprolol; lisinopril and hydrochlorothiazide continued Trend blood pressure and adjust blood pressure medication Diabetes mellitus On presentation her blood glucose was within goal. Would hold home metformin since it is too early in her admission. Accu-Chek with correction scale insulin ordered. History of breast cancer status post radical mastectomy Arimidex continued DVT prophylaxis SubCutaneous Lovenox Code Visit OBSV E&M: 73296 Initial observation care L3
--- NOTE | 2019-04-06 03:19 | EKG12_ITS ---
Test Reason : CP ADMIT Blood Pressure : / mmHG Vent. Rate : 058 BPM Atrial Rate : 058 BPM P-R Int : 152 ms QRS Dur : 102 ms QT Int : 428 ms P-R-T Axes : 061 010 032 degrees QTc Int : 420 ms Sinus bradycardia Incomplete right bundle branch block Borderline ECG When compared with ECG of 07-JAN-2019 12:28, No significant change was found Confirmed by CECILLE DRAKE, DELFINO ([id number]), editor book TAMELA CASTANON ([id number]) on 04/10/2019 2:01:07 PM Referred By: DR COON Confirmed By:DELFINO ODEN MD
[2019-04-06] MEDS: 0.9% Normal Saline 1,000 ML 50 ML IV (03:57)
[2019-04-06] MEDS: 0.9% NaCl Peripheral Flush Adult/Peds IV (03:57)
[2019-04-06] MEDS: Lisinopril 10 MG Tablet PO (06:06)
[2019-04-06] MEDS: Aspirin E.C. 81 MG Tablet PO (06:06)
[2019-04-06 06:53] LABS: Cholesterol 280 mg/dL (200); High Density Lipoprotein 70 mg/dL; Triglycerides 108 mg/dL; Very Low Density Lipoprotein 22 mg/dL (5-40)
[2019-04-06 07:10] LABS: Bedside Glucose 108 mg/dL (70-110)
[2019-04-06] MEDS: Metoprolol Tartrate 25 MG Tablet 12.5 MG PO (11:12)
[2019-04-06] MEDS: Allopurinol 100 MG Tablet PO (11:12)
[2019-04-06 11:26] LABS: Bedside Glucose 111 mg/dL (70-110)
--- NOTE | 2019-04-06 11:34 | DCINST_ITS ---
- Discharge Diagnoses Current Active Problems: Current Active and Chronic Problems Chest pain (Acute) You will use the following diet at home:: Calorie/Carbohydrate Controlled (specify 1200, 1400, etc) Discharge Activity: Return to Normal Activity Call your doctor if you observe: Shortness of breath, Dizziness, Fainting spells, Chest pain Allergies/Adverse Reactions: Allergies No Known Allergies Allergy (Verified 04/06/19 00:07) Medications to take at Discharge Atorvastatin Calcium [Lipitor] 20 mg PO QHS 08/24/16 Hydrochlorothiazide [Hctz] 12.5 mg PO PRN PRN 08/24/16 Lansoprazole [Prevacid] 15 mg PO DAILY PRN 08/24/16 Lisinopril 10 mg PO DAILY 08/24/16 Metformin [Metformin HCl] 750 mg PO BID 08/24/16 Anastrozole [Arimidex] 1 mg PO DAILY 05/03/17 Metoprolol Tartrate [Lopressor (beta amy)] 12.5 mg PO DAILY 05/03/17 Allopurinol 100 mg PO DAILY #30 tablet 05/04/17 Primary Care Physician: Star Lara DO [Primary Care Provider] - Please follow up with your Primary Care Physician in: 1 Week Test Results: Test results from this visit will be discussed in further detail at your follow- up appointment, if applicable. Proposed Discharge Date: 04/06/19
--- NOTE | 2019-04-06 11:36 | STRESSREP ---
Stress Test Report Exercise myocardial perfusion stress test. 68-year-old lady with a history of chest pain. Stress protocol: Resting EKG demonstrates normal sinus rhythm with a rate of 64 bpm normal intervals are noted resting blood pressures 122/70 mmHg. The patient exercised according to regular Jaden protocol for total duration of 7 minutes completing 1 minute into stage III of the Jaden protocol to maximum heart rate attained was 157 bpm which was 102% of maximum predicted heart rate and maximum workload was 8.5 metabolic equivalents. At rest there were no ST or T wave changes no suggest ischemia peak exercise upsloping ST changes when you were noted with no meet the criteria for ischemia. Occasional premature atrial complexes were noted. No clinical angina was noted. The resting blood pressures 122/70 with a peak blood pressure 178/68 mmHg. The test was terminated due to shortness of breath. Myocardial perfusion protocol. 11.4 mCi of technetium 99m sestamibi was injected at rest. The patient exercised according to regular Jaden protocol for total duration of 7 minutes. Peak exercise 33.8 mCi of technetium 99m sestamibi was injected stress images were obtained stress and rest images were reconstructed and compared in the short axis vertical and horizontal long axis. Gated images were also obtained PACS Perfusion SPECT analysis: Review of the stress images demonstrate normal uptake of tracer noted in all areas of myocardium. The rest images similar demonstrate normal uptake of tracer noted in all areas of myocardium. No areas of reversibility no suggest ischemia. No previous infarct is noted per Gated SPECT analysis: The gated ejection fraction is noted to be 85% Conclusion: Normal exercise myocardial perfusion stress test at a moderate workload. Preserved ejection fraction.
--- NOTE | 2019-04-06 12:15 | PCM.DC.SUM ---
Discharge Date and Diagnosis Date of Admission: 04/06/19 Date of Discharge: 04/06/19 - Primary Discharge Diagnosis Active and Suspected Problems 1. Atypical chest pain, ACS ruled out 2. Hyperlipidemia 3. Mild hypokalemia 4. Mild hyponatremia 5. Type 2 diabetes mellitus 6. History of right breast cancer status post radical mastectomy - Secondary Discharge Diagnosis Chronic Problems DM type 2 (diabetes mellitus, type 2) (Chronic) History of modified radical mastectomy of right breast (Chronic) Hospital Course and Treatment Imaging Results: Diagnostic Data Chest X-Ray 04/06/19 00:48 IMPRESSION: No acute findings in the lungs Electronically Signed: Haider Arias MD at 1:58 EDT Tel , Service support , Operations: None Procedures: Stress test Summary of Care Provided: The patient is a 68 year old F admitted 04/06/2019 due to chest pain. 1. Atypical chest pain, ACS ruled out-EKG without ST-T changes. Troponin negative. Patient underwent exercise stress test which was negative for ischemia. Gated ejection fraction noted to be 85%. Suspect pain musculoskeletal nature. Follow-up with primary care provider in 1 week. 2. Hyperlipidemia-continue statin. Lipid panel with total cholesterol 280, LDL 188. Recommend repeat lipid panel by primary care provider in 4 to 6 weeks with possible increase in statin regimen. 3. Mild hypokalemia-replace per protocol. 4. Mild hyponatremia- suspect secondary to mild hypovolemia. 5. Type 2 diabetes mellitus-continue home oral regimen. 6. History of right breast cancer status post radical mastectomy Patient seen and examined prior to discharge. Physical assessment as noted below. Patient is stable for discharge with follow up recommendations as noted above. This patient was seen by CLIFTON Schneider under the supervision of Dr. Jerry. - Physical Exam General: Alert, Oriented x3, Cooperative HEENT: Atraumatic, PERRLA, EOMI, Normocephalic Neck: Supple, No JVD, Negative Carotid Bruits Lungs: Clear to auscultation, Normal air movement Cardiovascular: Regular rate, Regular Rhythm, Normal S1, Normal S2, No murmurs Abdomen: Bowel Sounds Present, Soft, Non Tender, Non-Distended Extremities: No clubbing, No cyanosis, No edema, Capillary Refill Less than 3 Seconds Skin: No rashes, No breakdown Musculoskeletal: No Tenderness to Palpation of Joints or Extremities Neurological: Cranial nerves II-XII grossly intact, Neuro grossly intact Psych/Mental Status: Normal Affect, Appropriate Vital Signs Temp Pulse Resp BP Pulse Ox 98.4 F 74 16 113/56 L 98 04/06/19 08:19 04/06/19 11:12 04/06/19 08:19 04/06/19 08:19 04/06/19 08:19 Oxygen Delivery Method Room Air Weight: 127 lb 13.89 oz Body Mass Index (BMI) 23.3 Finger Stick Blood Glucose 135 Intake and Output for Last 24 Hours 04/04/19 04/05/19 04/06/19 23:59 23:59 23:59 Intake Total 110 / 110 Balance 110 / 110 Laboratory Tests Past 24 Hrs 04/06/19 04/06/19 04/06/19 00:30 00:30 03:34 WBC 6.4 RBC 4.18 L Hgb 12.2 Hct 36.0 L MCV 86.1 MCH 29.2 MCHC 33.9 RDW Std Deviation 40.2 RDW Coeff of Yumiko 12.9 Plt Count 265 MPV 9.2 Immature Gran % (Auto) 0.300 Neut % (Auto) 64.6 Lymph % (Auto) 22.9 [place] % (Auto) 8.4 Eos % (Auto) 3.3 Baso % (Auto) 0.5 Absolute Neuts (auto) 4.2 Absolute Lymphs (auto) 1.47 Absolute Nucleated RBC 0.00 Nucleated RBC % 0 Sodium 133 L Potassium 3.4 L Chloride 102 Carbon Dioxide 25.0 Anion Gap 6 BUN 25 H Creatinine 0.77 Estim Creat Clear Calc 43.18 Est GFR (MDRD) Af Amer 96 Est GFR (MDRD) Non-Af 80 BUN/Creatinine Ratio 32.6 H Glucose 111 H Calcium 9.5 Troponin I < 0.015 < 0.015 Triglycerides Cholesterol LDL Cholesterol VLDL Cholesterol HDL Cholesterol 04/06/19 06:25 WBC RBC Hgb Hct MCV MCH MCHC RDW Std Deviation RDW Coeff of Yumiko Plt Count MPV Immature Gran % (Auto) Neut % (Auto) Lymph % (Auto) [place] % (Auto) Eos % (Auto) Baso % (Auto) Absolute Neuts (auto) Absolute Lymphs (auto) Absolute Nucleated RBC Nucleated RBC % Sodium Potassium Chloride Carbon Dioxide Anion Gap BUN Creatinine Estim Creat Clear Calc Est GFR (MDRD) Af Amer Est GFR (MDRD) Non-Af BUN/Creatinine Ratio Glucose Calcium Troponin I < 0.015 Triglycerides 108 Cholesterol 280 H LDL Cholesterol 188 H VLDL Cholesterol 22 HDL Cholesterol 70 POC Glucose 04/06/19 04/06/19 11:16 06:44 POC Glucose 111 H 108 Discharge Diet: Low fat/ Low Cholesterol Discharge Activity: Return to Normal Activity Call your doctor if you observe: Shortness of breath, Dizziness, Fainting spells, Chest pain Home Medications: Medications to take at Discharge Atorvastatin Calcium [Lipitor] 20 mg PO QHS 08/24/16 Hydrochlorothiazide [Hctz] 12.5 mg PO PRN PRN 08/24/16 Lansoprazole [Prevacid] 15 mg PO DAILY PRN 08/24/16 Lisinopril 10 mg PO DAILY 08/24/16 Metformin [Metformin HCl] 750 mg PO BID 08/24/16 Anastrozole [Arimidex] 1 mg PO DAILY 05/03/17 Metoprolol Tartrate [Lopressor (beta amy)] 12.5 mg PO DAILY 05/03/17 Allopurinol 100 mg PO DAILY #30 tablet 05/04/17 Primary Care Physician: Star Lara DO [Primary Care Provider] - Please follow up with your Primary Care Physician in: 1 Week Disposition: Home Minutes spent on discharge:: 35 Patient Condition:: Stable Medical Necessity - Tobacco Use Smoking Status: Never smoker Meaningful Use Info Meaningful Use Diagnoses (Choose all that apply): None applicable
== END 2019-04-06 11:34 | disposition home or self-care (01) ==
LOC: ED 02:29 → PCU 02:34
PROVIDERS: Admitting Provider Hospitalist; Emergency Provider Emergency Medicine; Family Provider Student in an Organized Health Care Education/Training Program; PCP Student in an Organized Health Care Education/Training Program; Visit Provider Family Medicine
DX: R07.89 Other chest pain (principal); E78.5 Hyperlipidemia, unspecified; I10 Essential (primary) hypertension; E11.9 Type 2 diabetes mellitus without complications; R06.02 Shortness of breath; R51 Headache; E87.6 Hypokalemia; Z79.899 Other long term (current) drug therapy; Z79.84 Long term (current) use of oral hypoglycemic drugs; Z85.3 Personal history of malignant neoplasm of breast; I45.10 Unspecified right bundle-branch block; R94.31 Abnormal electrocardiogram [ECG] [EKG]; E87.1 Hypo-osmolality and hyponatremia
CPT/HCPCS: 36415; 71046; 78452; 80048; 80061; 82962; 84484; 85025; 93005; 93017; 99218; 99285; A9500; J7030; A4216; G0378

== ENCOUNTER 2020-10-24 13:10 | Emergency (ER) | payer MEDICARE, OTHER, SELFPAY ==
[2019-04-06 03:21] VITALS: BMI 23.3
[2020-10-24 13:11] VITALS: BP 173/80; PULSE 96; RESP 20; TEMP 36.4; O2SAT 98; BMI 26.5
--- NOTE | 2020-10-24 13:32 | RAD_ITS ---
STUDY: X-RAY - RIGHT HAND, ATTENTION RIGHT THUMB. REASON FOR EXAM: Female, 70 years old. Fell today, pain to thumb -- swelling to distal thumb TECHNIQUE: 4 view(s) of the finger were obtained. COMPARISON: None. FINDINGS: Normal metacarpal head. There is severe degenerative arthrosis of the first carpal metacarpal joint. Normal proximal phalanx. Normal distal phalanx. Normal distal interphalangeal joint. 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 Electronically Signed: Mitch Newman MD at 14:11 EST , Service support ,
--- NOTE | 2020-10-24 13:32 | CT_ITS ---
STUDY: CT BRAIN WITHOUT CONTRAST REASON FOR EXAM: Female, 70 years old. FALL HITTING NOSE AND FRONTAL AREA RADIATION DOSAGE (If Supplied By Facility): CTDIvol = ( 44.99 ) mGy, DLP = ( 796.11 ) mGycm TECHNIQUE: Transaxial CT imaging of the brain was performed without administration of intravenous contrast material. Individualized dose optimization techniques were used for this CT. COMPARISON: No relevant priors. FINDINGS: Normal soft tissue structures. Normal calvarium. There is mild cerebral atrophy with widening of the extra-axial spaces and ventricular dilatation. Normal white matter tracts of the cerebral hemispheres. Normal basal ganglia and thalami. Normal brainstem. Normal cerebellum. There is no intracranial hemorrhage. There are no findings of an acute ischemic infarction. Normal visualized paranasal sinuses. CT/Brain/Head without Contrast IMPRESSION: Chronic involutional changes of the brain. Electronically Signed: Mitch Newman MD at 13:59 EST , Service support ,
--- NOTE | 2020-10-24 13:33 | ED.VIS.FALL ---
History of Present Illness Chief Complaint: Laceration Informant: Patient, Significant Other Occurred: Today - JPTA Mechanism/Context: Same level fall, Trip - over curb Quality of Pain: - - sore Current Severity: Moderate Maximum Severity: Moderate Worsened by: palpation nose Relieved by: nothing Associated Symptoms: Amnesia - slight, short period of time; unk if LOC. Negative for: Parasthesias, Weakness, Loss of function, Inability to ambulate Narrative: Patient accidentally tripped going up a step/curb, falling and hitting her face on the pavement. She mainly injured her nose. She had good eyeglasses on, and they were scratched and she has no eye injury. Her was slightly ahead of her, heard a noise and looked back in for a minute she was not moving. Once he got back to her he was able to get her up and she was awake. It is unknown if she lost consciousness briefly or not but the patient does not remember a brief period of time does remember falling and hitting her face. She also scraped her hands and fell to her knees but she has been able to walk without any difficulty. Tetanus Immunization: <5 years Past Medical History - Allergies and Home Meds Allergies/Adverse Reactions: Allergies No Known Allergies Allergy (Verified 10/24/20 13:13) Primary Care Physician: Star Lara DO [Primary Care Provider] - Surgical History: hysterectomy - TAHBSO, mastectomy Smoking Status: Never smoker - Family History Maternal Family History: Reports: Cancer - Her mother had breast cancer at the age of 66, COPD - Her mother had COPD. However she was a smoker. Paternal Family History: Reports: Heart Disease - of massive OH Review of Systems General: Denies: Chills, Fever, Sweats Eyes: Denies: Visual changes - bilaterally, Diplopia ENT: Reports: Rhinorrhea - blood, resolved. Denies: Bilateral ear pain, Sore throat Cardiovascular: Denies: Chest pain, Palpitations Respiratory: Denies: Dyspnea, Cough, Dyspnea on exertion Gastrointestinal: Reports: Nausea. Denies: Abdominal pain, Vomiting, Diarrhea, Melena, Hematochezia Genitourinary: Denies: Dysuria, Hematuria, Frequency Musculoskeletal: Denies: Back pain, Extremity Pain Skin: Reports: Abrasions, Wounds - nasal, both hands abrased. Denies: Rash Neurological: Reports: Headache. Denies: Weakness, Numbness Physical Exam Vital Signs/Narrative: Vital Signs Temp Pulse Resp BP Pulse Ox 10/24/20 13:11 97.5 F L 96 20 H 173/80 H 98 Inital Vital Signs reviewed: Yes General: Well nourished, Well developed, - - Well-appearing, no distress, keenly alert, GCS 15 Head: Normocephalic, Trauma - Facial only, nose Eyes: Perrl, EOMI - Without extraocular entrapment or pain or diplopia, - - Midface stable nontender, no infraorbital hypoesthesia. Tenderness with laceration to nasal bridge. No active bleeding. Evidence of recent epistaxis, no active. ENT: TM's clear, No hemotympanum or drainage, No trauma Neck: Nontender, Full ROM. Negative for: Spinal Tenderness Cardiovascular: Regular rate, Regular rhythm, No murmurs Respiratory: No distress, CTA bilaterally, Chest nontender Abdomen: Soft, Nontender, Nondistended, Normal bowel sounds Back: Nontender. Negative for: Spinal Tenderness Extremeties: Full range of motion throughout all 4 extremities. Minor tenderness at an abrasion at the radial/volar aspect of the right thumb MCPJ. Other nontender abrasions both hands. Minor abrasions both anterior knees without any bony tenderness or effusion or limited range of motion. All ligaments stable. Skin: Normal color, No rash Neurological: Alert, Oriented x3, Cranial nerves II-XII grossly intact, Normal Strength, Normal Sensation, Normal Gait Psychological: Normal affect, Normal Mood Diagnostic/Tx/Re-eval Clinical Impression(s) from Imaging Studies Brain CT 10/24/20 13:32 IMPRESSION: Chronic involutional changes of the brain. Electronically Signed: Mitch Newman MD at 13:59 EST , Service support , Finger X-Ray 10/24/20 13:32 IMPRESSION: Marked degree of osteoarthritis involving the first carpal metacarpal joint. Electronically Signed: Mitch Newman MD at 14:11 EST , Service support , - Medical Decision Making Patient meets [place] knee rule criteria on both sides for not needing radiography. She is in agreement that her knees do not feel badly injured. X-rayed her right thumb, 3 views of my interpretation showed no fracture, CT her head which shows no acute intracranial injury since she was having symptoms of a mild traumatic brain injury. Nasal laceration was anesthetized and sutured, and her other abrasions were cleansed and dressed. She is doing well stable for discharge, suture removal 5 to 6 days. Procedures - Lacerations Nasal Length: 3 cm Depth: Sub Q Shape: V-shaped Prep: Sterile Conditions, Chlorhexadine Laceration Repair: Lidocaine with epi - 2cc, Local Irrigated (ml): 20 Number of Sutures/Molly: 4 Suture Information: Ethilon, Simple, 6-0 ED Disposition - Plan for ED Patient: Disposition: Home or Assisted Living Diagnosis: Abrasion of multiple sites of hand and finger, Closed head injury with concussion, Nasal laceration Instructions: ED Laceration, Face: Stitches or Tape, ED Head Injury (Adult) Referrals: Star Lara DO [Primary Care Provider] - 5 Days for suture removal (Or urgent care or ER, Tuesday or if no issues)
[2020-10-24] MEDS: Ibuprofen 200 MG Tablet 400 MG PO (13:58)
[2020-10-24] MEDS: Lidocaine/Epi/Tetracaine 50 ML 1 APPLIC TOPICAL (13:59)
[2020-10-24] MEDS: Lidocaine 2% /Epi 1:100 (20ml) 20 ML VIAL 5 ML INFILT (15:11)
== END 2020-10-24 16:24 | disposition home or self-care (01) ==
PROVIDERS: Emergency Provider Emergency Medicine; PCP Student in an Organized Health Care Education/Training Program
DX: S01.21XA Laceration without foreign body of nose, initial encounter (principal); S06.0X9A Concussion with loss of consciousness of unspecified duration, initial encounter; S60.311A Abrasion of right thumb, initial encounter; S60.512A Abrasion of left hand, initial encounter; S60.511A Abrasion of right hand, initial encounter; S80.212A Abrasion, left knee, initial encounter; S80.211A Abrasion, right knee, initial encounter; R40.2410 Glasgow coma scale score 13-15, unspecified time; W10.1XXA Fall (on)(from) sidewalk curb, initial encounter; Y93.9 Activity, unspecified; Y92.9 Unspecified place or not applicable
CPT/HCPCS: 12013; 70450; 73140; 99283

== ENCOUNTER 2021-04-06 10:47 | Emergency (ER) | payer MEDICARE, OTHER, SELFPAY ==
[2021-04-06 10:48] VITALS: BP 157/78; PULSE 95; RESP 14; TEMP 36.6; O2SAT 97; BMI 26.2
--- NOTE | 2021-04-06 11:00 | EX.ED.GENINJ ---
HPI History of Present Illness Chief Complaint: Laceration Informant: patient Narrative Narrative: Patient sustained a laceration to the medial aspect of the right ankle when a fan fell onto her. She denies any other injuries. No loss of functionality. Tetanus Immunization: <5 years [facility] Medical History (Updated 04/06/21 @ 11:[address] Primitivo Chairez DO) Breast cancer, right breast DM type 2 (diabetes mellitus, type 2) Hypertension Home Medications atorvastatin 20 mg PO QHS 08/24/16 [History Last Taken 04/04/19 22:00] hydrochlorothiazide 12.5 mg PO PRN PRN 08/24/16 [History Last Taken 04/05/19 08:00] lansoprazole [Prevacid] 15 mg PO DAILY PRN 08/24/16 [History Last Taken 04/05/19 08:00] lisinopril 10 mg PO DAILY 08/24/16 [History Last Taken 04/05/19 08:00] metformin 750 mg PO BID 08/24/16 [History Last Taken 04/05/19 17:00] anastrozole 1 mg PO DAILY 05/03/17 [History Last Taken 04/05/19 08:00] metoprolol tartrate 12.5 mg PO DAILY 05/03/17 [History Last Taken 04/05/19 08:00] allopurinol 100 mg PO DAILY #30 tab 05/04/17 [Rx Last Taken 04/05/19 08:00] Allergy/AdvReac Type Severity Reaction Status Date / Time No Known Allergies Allergy Verified 04/06/21 10:48 Surgical History History of modified radical mastectomy of right breast Social History (Updated 04/06/21 @ 11:[address] Primitivo Chairez DO) Smoking Status: Never smoker substance use type: does not use ROS ROS ED Constitutional Constitutional ED: Denies chills or weight loss Eyes Eyes: Denies change in vision or diplopia ENT ENT ED: Denies ear pain, rhinorrhea or sore throat Cardiovascular Cardiovascular: Denies chest pain, orthopnea, palpitations or racing heartbeat Respiratory/Chest Respiratory/Chest: Denies cough, dyspnea or orthopnea Gastrointestinal Gastrointestinal: Denies abdominal pain, diarrhea, nausea or vomiting Genitourinary Genitourinary ED: Denies dysuria, hematuria or urinary frequency Musculoskeletal Musculoskeletal: Denies arthralgias or myalgias Integumentary Reports other Details: Right ankle laceration ; Denies abscess or rash Neurologic Neurologic: Denies headache(s) or weakness Psychiatric Psychiatric: Denies anxiety, depression, suicidal ideation or suicidal thoughts Endocrine Endocrinology: Denies polydipsia, polyphagia or polyuria Allergic/Immunologic Allergic/Immunologic ED: Denies mouth swelling, tongue swelling or urticaria EXAM Physical Exam Const Vital Signs: 04/06/21 10:48 Temperature 98 F Temperature Source Temporal Pulse Rate 95 Respiratory Rate 14 Blood Pressure 157/78 H Blood Pressure Mean 104 Pulse Ox 97 Oxygen Delivery Method Room Air Positive well nourished and well developed General Appearance ED: well developed HEENT Reports normocephalic, head/scalp atraumatic and moist mucous membranes Eyes PERRL and EOMs intact bilaterally Neck no lymphadenopathy, supple and no JVD Resp normal respiratory effort and clear to auscultation bilaterally Cardio regular rate, regular rhythm and no murmurs GI normal to inspection, nondistended, normoactive bowel sounds and non-tender Palpation: soft Back/Spine no CVA tenderness and normal ROM Extremity full ROM General Extremety ED: Negative for edema General Extremity: Negative for edema Neuro oriented x3 and CN's II-XII intact bilaterally Sensorium / Orientation: alert Motor Exam: strength 5/5 throughout Psych mental status grossly normal Mood & Affect: Negative for depressed or tearful Skin no rashes or lesions noted Skin Narrative: There is a 3 cm linear laceration to the right ankle. Just anterior to this is a superficial abrasion. Discharge Plan Triage Chief Complaint: Laceration ED Provider: Primitivo Chairez Dx/Rx/DC Orders Prescriptions: No Action metformin 500 MG tablet 750 mg PO BID RF: 0 atorvastatin 20 MG tablet 20 mg PO QHS RF: 0 lisinopril 20 MG tablet 10 mg PO DAILY RF: 0 lansoprazole [Prevacid] 15 MG capsule 15 mg PO DAILY PRN (Reason: acid reflux) RF: 0 hydrochlorothiazide 25 MG tablet 12.5 mg PO PRN PRN (Reason: EDEMA) RF: 0 anastrozole 1 MG tablet 1 mg PO DAILY RF: 0 metoprolol tartrate 25 MG tablet 12.5 mg PO DAILY RF: 0 allopurinol 100 MG tablet 100 mg PO DAILY Qty: 30 RF: 11 Primary Care Provider: Star Lara
[2021-04-06] MEDS: Lidocaine 1% (20 ml mdv) 20 ML Vial INFILT (12:00)
== END 2021-04-06 12:13 | disposition home or self-care (01) ==
PROVIDERS: Emergency Provider Emergency Medicine; PCP Student in an Organized Health Care Education/Training Program
DX: S91.011A Laceration without foreign body, right ankle, initial encounter (principal); W22.8XXA Striking against or struck by other objects, initial encounter; Y93.9 Activity, unspecified; Y92.9 Unspecified place or not applicable; I10 Essential (primary) hypertension; E11.9 Type 2 diabetes mellitus without complications; Z85.3 Personal history of malignant neoplasm of breast; Z79.84 Long term (current) use of oral hypoglycemic drugs; Z79.899 Other long term (current) drug therapy
CPT/HCPCS: 12002; 99284

== ENCOUNTER → 2021-05-18 | Outpatient (CLI) | payer MEDICARE, OTHER, SELFPAY ==
[2021-05-18 17:33] LABS: Bacteria 0 SEEN /hpf (None Seen); Mucous, Urine 0 SEEN /hpf (<or=2+)
[2021-05-18 17:59] LABS: Color, Urine Yellow (Yellow); Glucose, Dipstick Normal (Normal); Ketone-Dipstick Negative (Negative); Leukocyte Esterase-Dipstick 500 /ul (Negative); Nitrite-Dipstick Negative (Negative); Occult Blood-Urine 10 /ul (Negative); Protein-Dipstick 15 mg/dl (Negative); Urine Clarity Sl. Cloudy (Clear); Urine Urobilinogen Normal (Normal)
[2021-05-18 19:07] LABS: Urine Bilirubin Dipstick 1 mg/dL (Negative)
[2021-05-18 19:22] LABS: Red Blood Cells-Urine 0-5 SEEN /hpf (0-5); Squamous Epithelial Cells - UA 0-5 SEEN /hpf (5-10); White Blood Cells 10-25 SEEN /hpf (0-5)
[2021-05-18 19:23] LABS: Amorphous Sediment 1+ URATE
== END | disposition home or self-care (01) ==
LOC: LABSPEC 16:48
PROVIDERS: PCP Student in an Organized Health Care Education/Training Program; Referring Provider Nurse Practitioner Adult Health; Visit Provider Nurse Practitioner Adult Health
DX: R31.21 Asymptomatic microscopic hematuria (principal)
CPT/HCPCS: 81001

== ENCOUNTER 2022-01-04 11:57 | Emergency (ER) | payer MEDICARE, OTHER, SELFPAY ==
[2022-01-04 11:58] VITALS: BP 149/81; PULSE 78; RESP 16; TEMP 36.6; O2SAT 97; BMI 25.6
--- NOTE | 2022-01-04 12:27 | RAD_ITS ---
INDICATION: chest pain EXAMINATION/TECHNIQUE: X-RAY - XR Chest 1 View COMPARISON: 04/06/2019 FINDINGS: LINES/DEVICES: None. LUNGS: No consolidation, edema or effusion. No pneumothorax. MEDIASTINUM AND CARDIOVASCULAR STRUCTURES: Cardiac silhouette not enlarged. Central airways and mediastinal contour are unremarkable. BONES AND SOFT TISSUES: Unremarkable. RAD/Chest 1 View (Portable) IMPRESSION: No radiographic evidence of acute cardiopulmonary disease. Electronically Signed: Roldan Alvarez MD at 13:20 EDT ,
--- NOTE | 2022-01-04 12:27 | ED.VIS.CHEST ---
HPI History of Present Illness Chief Complaint: Chest Pain Narrative Narrative: Patient presents with chest pain for the past few weeks it is mostly at night when she also has some palpitations. She does not have orthopnea or any kind of shortness of breath. She is able to do her daily activities and she does not have any kind of exertional chest pain. She has no fevers or chills. She has no back pain or tearing sensation. She has no pleuritic component. No lower extremity edema or calf pain. No abdominal pain or epigastric pain. [facility] Medical History Breast cancer, right breast DM type 2 (diabetes mellitus, type 2) Hypertension Home Medications atorvastatin 20 mg PO QHS 08/24/16 [History Last Taken 04/04/19 22:00] hydrochlorothiazide 12.5 mg PO PRN PRN 08/24/16 [History Last Taken 04/05/19 08:00] lansoprazole [Prevacid] 15 mg PO DAILY PRN 08/24/16 [History Last Taken 04/05/19 08:00] lisinopril 10 mg PO DAILY 08/24/16 [History Last Taken 04/05/19 08:00] metformin 750 mg PO BID 08/24/16 [History Last Taken 04/05/19 17:00] anastrozole 1 mg PO DAILY 05/03/17 [History Last Taken 04/05/19 08:00] metoprolol tartrate 12.5 mg PO DAILY 05/03/17 [History Last Taken 04/05/19 08:00] allopurinol 100 mg PO DAILY #30 tab 05/04/17 [Rx Last Taken 04/05/19 08:00] Allergy/AdvReac Type Severity Reaction Status Date / Time No Known Allergies Allergy Verified 01/04/22 11:59 Surgical History History of modified radical mastectomy of right breast Social History Smoking Status: Never smoker substance use type: does not use ROS ROS ED ROS Narrative Past medical history: Reviewed, unremarkable Medications: Reviewed Social history: Noncontributory Review of systems: All systems negative except as indicated General: No fever Eyes: No visual changes ENT: No upper airway congestion, normal voice Neck: No neck pain Cardiovascular: Chest pain as in HPI palpitations as in HPI. Respiratory: No shortness of breath or cough Gastrointestinal: No abdominal pain, nausea vomiting or diarrhea Genitourinary: No dysuria Musculoskeletal: Denies myalgias no difficulty with ambulation Skin: No rash Neurological: No memory loss, confusion or any focal weakness Psych: No recent behavioral changes Hematologic: No easy bleeding or easy bruising EXAM Physical Exam Narrative Exam Narrative: Physical exam General: Well nourished, Well developed, No Acute Distress Head: Normocephalic, Atraumatic Eyes: Conjunctiva not pale ENT: Moist mucous membranes Neck: Supple, Nontender, No lymphadenopathy Cardiovascular: Regular rate, Regular rhythm Respiratory: No distress, CTA bilaterally Abdomen: Soft, Nontender, Nondistended Back: Nontender, Normal Inspection. Negative for: CVA tenderness Extremities: Nontender, No edema. No calf pain Skin: Normal color, No rash Neurological: Alert, Normal Strength, Normal Sensation Psychological: Normal affect Const Vital Signs: 01/04/22 11:58 01/04/22 12:13 01/04/22 12:47 Temperature 97.8 F Temperature Source Temporal Pulse Rate 78 Respiratory Rate 16 Respiratory Effort Normal Non-Labored Blood Pressure 149/81 H Blood Pressure Mean 103 Pulse Ox 97 Oxygen Delivery Method Room Air Room Air Heart Score History: Slightly/Non-Suspicious ECG: Normal Age: >/= 65 years Risk Factors: 1 or 2 Risk Factors Troponin: </= Normal Limit Score: 3 MDM MDM MDM Narrative Medical decision making narrative: Patient has unremarkable ED work-up, this is been ongoing for over a week, troponin is negative. I will set her up with a Holter monitor if anything changes she is to return. She understands this. Lab Data Labs: Laboratory Results - last 24 hr 01/04/22 01/04/22 01/04/22 12:35 12:35 12:35 WBC 7.4 RBC 4.17 L Hgb 11.7 L Hct 36.2 L MCV 86.8 MCH 28.1 MCHC 32.3 RDW Std Deviation 41.3 RDW Coeff of [place] 13.2 Plt Count 335 MPV 9.0 Immature Gran % (Auto) 0.400 Neut % (Auto) 67.2 Lymph % (Auto) 19.9 [place] % (Auto) 6.7 Eos % (Auto) 5.0 Baso % (Auto) 0.8 Absolute Neuts (auto) 5.0 Absolute Lymphs (auto) 1.48 Nucleated RBC % 0 Sodium 139 Potassium 3.8 Chloride 105 Carbon Dioxide 22.0 Anion Gap 12 BUN 26 H Creatinine 1.01 Estim Creat Clear Calc 40.99 Est GFR (MDRD) Af Amer 70 Est GFR (MDRD) Non-Af 58 L BUN/Creatinine Ratio 25.7 H Glucose 106 Calcium 9.2 Total Bilirubin 0.30 AST 17 ALT 35 Alkaline Phosphatase 83 Troponin I High Sens 4 Total Protein 7.5 Albumin 3.6 Globulin 3.9 Albumin/Globulin Ratio 0.9 Radiography Diagnostic Testing: Clinical Impression(s) from Imaging Studies Chest X-Ray 01/04/22 12:27 IMPRESSION: No radiographic evidence of acute cardiopulmonary disease. Electronically Signed: Roldan Alvarez MD at 13:20 EDT Reading Location ID and State: [facility] / [place] Tel , Service support , Treatment and Re-Evaluation Narrative: Sinus rhythm with a rate of 70. Normal [place] and QTc intervals. No ischemic changes. Interpreted by emergency doctor Discharge Plan Triage Chief Complaint: Chest Pain ED Provider: Willard Martinez Dx/Rx/DC Orders Clinical Impression: Chest pain, Palpitation Instructions: ED Chest Pain, Uncertain Cause, ED Palpitations Prescriptions: No Action metformin 500 MG tablet 750 mg PO BID RF: 0 atorvastatin 20 MG tablet 20 mg PO QHS RF: 0 lisinopril 20 MG tablet 10 mg PO DAILY RF: 0 lansoprazole [Prevacid] 15 MG capsule 15 mg PO DAILY PRN (Reason: acid reflux) RF: 0 hydrochlorothiazide 25 MG tablet 12.5 mg PO PRN PRN (Reason: EDEMA) RF: 0 anastrozole 1 MG tablet 1 mg PO DAILY RF: 0 metoprolol tartrate 25 MG tablet 12.5 mg PO DAILY RF: 0 allopurinol 100 MG tablet 100 mg PO DAILY Qty: 30 RF: 11 Primary Care Provider: Star Lara Referrals: Abner Drew MD [STAFF PHYSICIAN] - 2 Days Star Lara DO [Primary Care Provider] - Disposition Disposition: Home, Self Care
[2022-01-04] MEDS: Aspirin 81 MG TAB.CHEW 324 MG PO (12:44)
--- NOTE | 2022-01-04 12:46 | EKG12_ITS ---
Test Reason : CP Blood Pressure : / mmHG Vent. Rate : 070 BPM Atrial Rate : 070 BPM P-R Int : 136 ms QRS Dur : 096 ms QT Int : 392 ms P-R-T Axes : 069 001 028 degrees QTc Int : 423 ms Normal sinus rhythm Normal ECG Confirmed by GALLITO DRAKE, YAIR ([id number]), magazine editor VERO RAMIREZ ([id number]) on 01/05/2022 8:54:03 AM Referred By: PC Confirmed By:YAIR CONTI MD
[2022-01-04 12:59] LABS: Absolute Lymphocyte Count 1.48 X10^3/uL (0.83-4.51); Basophil# 0.06 X10^3/uL; Basophil% 0.8 % (0-1); Eosinophil# 0.37 X10^3/uL; Hematocrit 36.2 % (37-47); Hemoglobin 11.7 g/dL (12.0-15.0); Lymphocyte # 1.48 X10^3/ul (0.83-4.51); Lymphocyte % 19.9 % (19-41); Mean Corp Hgb Conc 32.3 g/dL (32-36); Mean Corpuscular Hgb 28.1 pg (27.0-32.0); Mean Corpuscular Volume 86.8 fL (81-99); Monocyte% 6.7 % (0-10); NRBC Flagged by Analyzer 0 % (0-5); Neutrophil # 4.98 X10^3/uL (2.7-7.7); Neutrophil % 67.2 % (47-70); Platelet Count 335 K/mm3 (150-450); RBC Distribution Width CV 13.2 % (11.6-14.6); RBC Distribution Width SD 41.3 fl (35.1-43.9); Red Blood Count 4.17 M/mm3 (4.2-5.4); White Blood Count 7.4 K/mm3 (4.4-11.0)
[2022-01-04 13:05] LABS: ALB/GLOB Ratio 0.9 RATIO (0.9-2.4); AST(SGOT) 17 U/L (15-37); Alanine Aminotransfer ALT/SGPT 35 U/L (13-56); Albumin, Serum 3.6 g/dL (3.2-5.0); Alkaline Phosphatase 83 U/L (45-117); Anion Gap 12 (5-15); BUN 26 mg/dL (7-18); BUN/Creat Ratio 25.7 RATIO (10-20); Calcium,Total 9.2 mg/dL (8.5-10.1); Chloride 105 mmol/L (98-107); Creatinine, Serum 1.01 mg/dL (0.55-1.02); EST Glomerular Filtration Rate 58 mL/min (>60); Est Glom Filt Rate - Afr Amer 70 mL/min (>60); Estimated Creatinine Clearance 40.99 ml/min; Globulin 3.9 g/dL (2.2-4.2); Glucose 106 mg/dL (74-106); Potassium 3.8 mmol/L (3.5-5.1); Protein, Total 7.5 g/dL (6.4-8.2); Sodium Level 139 mmol/L (136-145)
[2022-01-04 13:09] LABS: Troponin-I HS (w/2H Reflex) 4 pg/mL (3.0-54.0)
[2022-01-04 14:21] VITALS: BP 111/63; PULSE 62; RESP 16; O2SAT 97
[2022-01-04 14:44] LABS: Reflex Troponin-HS? (from REC) Y
== END 2022-01-04 14:22 | disposition home or self-care (01) ==
PROVIDERS: Emergency Provider Emergency Medicine; PCP Student in an Organized Health Care Education/Training Program; Visit Provider Emergency Medicine
DX: R07.9 Chest pain, unspecified (principal); E11.9 Type 2 diabetes mellitus without complications; I10 Essential (primary) hypertension; R00.2 Palpitations; Z79.84 Long term (current) use of oral hypoglycemic drugs; Z79.899 Other long term (current) drug therapy; Z85.3 Personal history of malignant neoplasm of breast
CPT/HCPCS: 71045; 80053; 84484; 85025; 93005; 99285; A4216

== ENCOUNTER → 2022-03-31 | Outpatient (CLI) | payer MEDICARE, OTHER, SELFPAY ==
--- NOTE | 2022-03-31 12:46 | ECHOD_ITS ---
Reason For Study: HTN Procedure This was a 2D Doppler, Color Flow transthoracic echocardiogram. Exam performed in department. Left Ventricle Normal LV size. Left ventricular systolic function is normal. The estimated ejection fraction is 60 %. Stage 1 diastolic dysfunction. No regional wall motion abnormalities noted. Right Ventricle Normal RV size. Normal systolic function. Atria Normal left atrium. Normal right atrium. Mitral Valve Normal mitral valve. Tricuspid Valve Normal tricuspid valve. Mild tricuspid valve insufficiency. Pulmonary artery systolic pressure is 29 mmHg. Aortic Valve Trisinus/trileaflet aortic valve. Mild focal aortic valve calcification. Pulmonic Valve Normal pulmonic valve. Great Vessels Normal aortic root. The pulmonary artery is normal size. Normal inferior vena cava. Pericardium/Pleural No pericardial effusion. MMode/2D Measurements & Calculations LVIDd: 3.9 cm IVSd: 0.85 cm CO(Teich): 2.9 l/min LVIDs: 2.2 cm LVPWd: 1.0 cm RVDd: 3.2 cm FS: 42.9 % Ao root diam: 3.0 cm LAV(MOD-bp): 27.8 ml LVAd ap4: 24.9 cm2 LAV(MOD-bp) Indexed: 16.9 ml/m2 LVLd ap4: 7.9 cm LAV(MOD-sp2): 34.0 ml EDV(MOD-sp4): 66.8 ml LAV(MOD-sp4): 22.2 ml EDV(sp4-el): 66.4 ml LVAs ap4: 13.2 cm2 LVLs ap4: 6.6 cm ESV(MOD-sp4): 22.3 ml ESV(sp4-el): 22.2 ml EF(MOD-sp4): 66.6 % EF(sp4-el): 66.6 % LVAd ap2: 21.8 cm2 CO(MOD-sp4): 2.7 l/min SV(MOD-sp2): 27.7 ml LVLd ap2: 7.7 cm SV(MOD-sp4): 44.5 ml EDV(MOD-sp2): 50.8 ml EDV(sp2-el): 52.3 ml LVAs ap2: 13.4 cm2 LVLs ap2: 6.5 cm ESV(MOD-sp2): 23.2 ml ESV(sp2-el): 23.2 ml EF(MOD-sp2): 54.4 % SV(sp4-el): 44.2 ml LA dimension(2D): 3.4 cm LA A4 area: 11.8 cm2 RA A4 area: 10.1 cm2 Time Measurements MV dec time: 0.23 sec Doppler Measurements & Calculations MV E max andrew: 92.4 cm/sec Lat Peak E' Andrew: 8.6 cm/sec Med Peak E' Andrew: 10.2 cm/sec MV A max andrew: 96.7 cm/sec E/E' lat: 10.7 E/E' med: 9.1 MV E/A: 0.96 Ao V2 max: 173.0 cm/sec LV V1 max: 109.3 cm/sec MV dec slope: 411.3 cm/sec2 Ao max P.0 mmHg LV V1 max P.8 mmHg Ao V2 mean: 109.9 cm/sec LV V1 mean P.9 mmHg Ao mean P.7 mmHg LV V1 mean: 81.7 cm/sec Ao V2 VTI: 38.1 cm LV V1 VTI: 27.8 cm PA V2 max: 99.4 cm/sec TR max andrew: 250.9 cm/sec PA V2 mean: 66.7 cm/sec TR max P.2 mmHg ECHO/Echo Complete Interpretation Summary Normal LV size. Left ventricular systolic function is normal. The estimated ejection fraction is 60 %. Stage 1 diastolic dysfunction. Pulmonary artery systolic pressure is 29 mmHg. Ordering Physician: Abner Drew Referring Physician: Star Lara Performed By: Jaki Vicente RDCS
== END | disposition home or self-care (01) ==
LOC: CVS 12:46
PROVIDERS: PCP Student in an Organized Health Care Education/Training Program; Referring Provider Internal Medicine Cardiovascular Disease; Visit Provider Internal Medicine Cardiovascular Disease
DX: R07.9 Chest pain, unspecified (principal)
CPT/HCPCS: 93306

== ENCOUNTER 2024-03-04 01:04 | Emergency (ER) | payer MEDICARE, OTHER, SELFPAY ==
[2024-03-04 01:05] VITALS: BP 189/63; PULSE 55; RESP 15; TEMP 36.6; O2SAT 100; BMI 25.2
--- NOTE | 2024-03-04 01:30 | CT_ITS ---
INDICATION: Kidney Stone EXAMINATION: CT ABDOMEN AND PELVIS WITHOUT CONTRAST - CT Abdomen And Pelvis W/O Contrast Injection TECHNIQUE: Helically acquired images were obtained of the abdomen and pelvis without oral or IV contrast. A radiation dose optimization technique was used for this scan. IV Contrast dosage and agent: None. Oral contrast: None. RADIATION DOSAGE (If Supplied By Facility): CTDIvol = ( 6.42 ) mGy, DLP = ( 375.38 ) mGycm COMPARISON: No relevant prior comparison study available FINDINGS: LOWER CHEST: Lung bases are clear. No cardiomegaly or pericardial effusion. Partially visualized right breast implant. LIVER: The liver is normal in size, shape, and attenuation. No focal mass. GALLBLADDER AND BILIARY TREE: Gallbladder not seen. No intra- or extrahepatic biliary ductal dilation. PANCREAS: No focal cystic or solid mass. SPLEEN: Normal size without focal cystic or solid mass. ADRENAL GLANDS: No nodules. KIDNEYS AND URETERS: Normal renal size and position. Mild right hydroureteronephrosis. 0.3 cm mid ureteral calculus at the L5 level. Right midpole 0.4 cm calculus. PERITONEUM: No ascites or free air. No other fluid collection. BOWEL: The stomach is unremarkable. Normal caliber small bowel. No obstruction. No colonic wall thickening or inflammatory changes. No evidence of acute appendicitis. LYMPH NODES: No enlarged mesenteric or retroperitoneal lymph nodes. VESSELS: Aorta is non-dilated. Mild atherosclerotic calcification. URINARY BLADDER: Unremarkable. REPRODUCTIVE ORGANS: No pelvic masses. ABDOMINAL WALL: No discrete abdominal or pelvic wall hernia. BONES: No acute or suspicious osseous abnormality. Mild degenerative changes of the spine and hips. CT/Abdomen/Pelvis without Cont IMPRESSION: Mild right hydroureteronephrosis. 0.3 cm mid ureteral calculus. Additional 0.4 cm right renal calculus. Electronically Signed: Herrera Lerma MD at 2:07 EDT Reading Location ID and State: [facility] / [place] Tel , Service support ,
--- NOTE | 2024-03-04 01:31 | EDS_ITS ---
HPI HPI - GI History of Present Illness Chief Complaint: Flank Pain Informant: patient and spouse/S.O. Narrative Narrative: 73-year-old female presents feeling like she has been having kidney stone pain twinges off-and-on this whole past day, but then sudden severe pain has been for just the last 3 hours or so. Right flank, radiating around to her right lower quadrant, urinating in small amounts but no dysuria or gross hematuria. Nausea but no vomiting. No fevers or chills. Has a history of uric acid stones and has required surgery to remove them in the past, used to see Dr. Cai now following with Dr. Soto. [facility] Medical History FHx: total knee replacement Renal calculi Cancer of right breast History of COVID-19 (09/2021) Hyperlipidemia Essential hypertension DM type 2 (diabetes mellitus, type 2) Home Medications ?Medication ?Instructions ?Recorded ?Last Taken ?Type atorvastatin 20 mg tablet 20 mg PO QHS 08/24/16 04/04/19 22:00 History lansoprazole 15 mg capsule,delayed 15 mg PO DAILY PRN acid reflux 08/24/16 04/05/19 08:00 History release (Prevacid) allopurinol 100 mg tablet 100 mg PO DAILY #30 tabs 05/04/17 04/05/19 08:00 Rx metformin 750 mg tablet,extended 750 mg PO .COMPLEX 02/23/22 Unknown History release 24 hr hydrochlorothiazide 12.5 mg capsule 12.5 mg PO DAILY PRN elevated bp 02/24/22 Unknown History lisinopril 20 mg tablet 20 mg PO DAILY 02/24/22 Unknown History metoprolol succinate 25 mg 12.5 mg PO DAILY 02/24/22 Unknown History tablet,extended release 24 hr cholecalciferol (vitamin D3) 125 125 mcg PO DAILY 03/04/24 Unknown History mcg (5,000 unit) capsule ciprofloxacin HCl 500 mg tablet 500 mg PO BID #14 TABLETS 03/04/24 Unknown Rx ondansetron 8 mg disintegrating 8 mg PO Q8H PRN nausea and 03/04/24 Unknown Rx tablet vomiting #15 tabs oxycodone-acetaminophen 5 mg-325 1 tab PO Q4H PRN Pain 4 days #20 03/04/24 Unknown Rx mg tablet TABLETS Allergy/AdvReac Type Severity Reaction Status Date / Time No Known Allergies Allergy Verified 02/24/22 10:17 Family History Father , Age 59, sudden from [place] CAD (coronary artery disease) Myocardial infarction Sudden cardiac Mother COPD (chronic obstructive pulmonary disease) Breast cancer Aunt CAD (coronary artery disease) Myocardial infarction, Onset Age: 42 Grandfather CAD (coronary artery disease) Grandmother Aortic aneurysm Surgical History History of lithotripsy History of total abdominal hysterectomy History of cholecystectomy History of modified radical mastectomy of right breast Social History Smoking Status: Never smoker substance use type: does not use ROS ROS ED Constitutional Constitutional ED: Denies chills or fever(s) Eyes Eyes: Denies change in vision or diplopia ENT ENT ED: Denies rhinorrhea or sore throat Cardiovascular Cardiovascular: Denies chest pain or palpitations Respiratory/Chest Respiratory/Chest: Denies cough or dyspnea Gastrointestinal Gastrointestinal: Reports abdominal pain and nausea; Denies diarrhea or vomiting Genitourinary Genitourinary ED: Reports as per HPI and flank pain; Denies dysuria or hematuria Musculoskeletal Musculoskeletal: Reports back pain; Denies neck pain Integumentary Denies abscess or rash Neurologic Neurologic: Denies headache(s), paresthesias or weakness Psychiatric Psychiatric: Denies anxiety or suicidal thoughts EXAM Physical Exam Const Vital Signs: 03/04/24 01:05 03/04/24 02:07 03/04/24 03:01 Temperature 97.8 F 97.8 F 97.7 F L Temperature Source Oral Temporal Temporal Pulse Rate 55 L 73 60 Respiratory Rate 15 16 15 Blood Pressure 189/63 H 171/66 H 169/56 H Blood Pressure Mean 105 101 93 Pulse Ox 100 100 97 Oxygen Delivery Method Room Air Room Air Room Air Positive well nourished and well developed General Appearance ED: well developed and NAD HEENT Reports moist mucous membranes normocephalic and atraumatic Eyes PERRL and EOMs intact bilaterally Neck full ROM and supple Resp normal respiratory effort and clear to auscultation bilaterally Cardio regular rate, regular rhythm and no murmurs GI non-distended GI Narrative: Mild right lower quadrant tenderness without guarding or rebound. Auscultation: normoactive bowel sounds Palpation: soft Back/Spine General Back: CVA tenderness right and other FROM Extremity normal to inspection General Extremety ED: Negative for edema, pulses abnormal or tenderness General Extremity: Negative for edema or pulses abnormal Neuro oriented x3, CN's II-XII intact bilaterally and no sensory deficits noted Sensorium / Orientation: awake and alert Motor Exam: strength 5/5 throughout Skin no rashes or lesions noted and no wounds MDM MDM MDM Narrative Medical decision making narrative: Suspecting a kidney stone given her history, but has history of needing surgical extractions, CT was obtained in order to characterize details. I reviewed the images as well as the report which I agree with, there is a 3 mm mid ureteral obstructing stone along with another nonobstructing nephrolith, with mild hydronephrosis and no other acute abnormality. Her urine shows some signs of infection and bacteriuria. This was sent for culture and she was treated empirically with IV Rocephin 1 g in addition to oral Cipro which we are starting her on, a 7-day course. Initially she was treated with Zofran and morphine, she says she was still in pain although it helped a little so she was additionally given fentanyl and Reglan and was feeling much better. I gave her an oral Percocet, offered admission she declines and feels she would be okay controlling symptoms at home. Expectant management likely indicated for this stone, she is not septic, she does not have a high white blood count I do not think she needs to be admitted medically because of the complicated infection. She can follow- up with urology after the weekend, we discussed reasons to return, she is given strainers to look for the stone at home if she passes it she does not have a follow-up or return emergently but I recommend to complete the antibiotics. Lab Data Attestation: I reviewed the patient's lab results. Labs: Laboratory Results - last 24 hr 03/04/24 01:21 WBC 8.6 RBC 3.58 L Hgb 10.3 L Hct 31.9 L MCV 89.1 MCH 28.8 MCHC 32.3 RDW Std Deviation 42.5 RDW Coeff of Yumiko 13.2 Plt Count 351 MPV 9.7 Immature Gran % (Auto) 0.500 Neut % (Auto) 62.4 Lymph % (Auto) 22.8 [place] % (Auto) 8.1 Eos % (Auto) 5.5 H Baso % (Auto) 0.7 Absolute Neuts (auto) 5.4 Absolute Lymphs (auto) 1.96 Nucleated RBC % 0 Sodium 136 Potassium 4.0 Chloride 104 Carbon Dioxide 21.0 Anion Gap 11 BUN 32 H Creatinine 1.44 H Estim Creat Clear Calc 30.70 Est GFR (MDRD) Af Amer 46 L Est GFR (MDRD) Non-Af 38 L BUN/Creatinine Ratio 22.2 H Glucose 190 H Calcium 9.4 Urine Color Yellow Urine Clarity Clear Urine pH 5.0 Ur Specific Burg[place] 1.015 Urine Protein 15 H Urine Glucose (UA) Normal Urine Ketones Negative Urine Occult Blood 50 H Urine Nitrite Negative Urine Bilirubin Negative Urine Urobilinogen Normal Ur Leukocyte Esterase 500 H Urine RBC 5-10 SEEN Urine WBC 10-25 SEEN Ur Squamous Epith Cells 5-10 SEEN Urine Bacteria 2+ Hyaline Casts 0-5 SEEN Urine Mucus 0 SEEN Radiography Diagnostic Testing: Clinical Impression(s) from Imaging Studies Abdomen/Pelvis CT 03/04/24 01:30 IMPRESSION: Mild right hydroureteronephrosis. 0.3 cm mid ureteral calculus. Additional 0.4 cm right renal calculus. Electronically Signed: Herrera Lerma MD at 2:07 EDT Reading Location ID and State: [address] [place] [address] Tel , Service support , Discharge Plan Triage Chief Complaint: Flank Pain ED Provider: Reynaldo Soto Dx/Rx/DC Orders Clinical Impression: Renal colic on right side, Ureterolithiasis, Acute UTI Instructions: ED Urine Strainer, ED Kidney Stone with Pain Prescriptions: New ciprofloxacin HCl 500 mg tablet 500 mg PO BID Qty: 14 0RF ondansetron 8 mg tablet,disintegrating 8 mg PO Q8H PRN (Reason: nausea and vomiting) Qty: 15 0RF oxycodone-acetaminophen 5-325 mg tablet 1 tab PO Q4H PRN (Reason: Pain) 4 Days Qty: 20 0RF No Action hydrochlorothiazide 12.5 mg capsule 12.5 mg PO DAILY PRN (Reason: elevated bp) lisinopril 20 mg tablet 20 mg PO DAILY metoprolol succinate 25 mg tablet extended release 24 hr 12.5 mg PO DAILY Patient Comments: take 1/2 tablet by mouth once daily metformin 750 mg tablet extended release 24 hr 750 mg PO .COMPLEX Rx Instructions: 750 mg PO 1 tablet with breakfast and 2 tablets at supper; atorvastatin 20 MG tablet 20 mg PO QHS lansoprazole [Prevacid] 15 MG capsule 15 mg PO DAILY PRN (Reason: acid reflux) allopurinol 100 MG tablet 100 mg PO DAILY Qty: 30 11RF cholecalciferol (vitamin D3) 125 mcg (5,000 unit) capsule 125 mcg PO DAILY Primary Care Provider: Star Lara Referrals: Star Lara DO [Primary Care Provider] - Adonis Soto MD [Med Staff - Active Staff] - As soon as possible (unless you pass the stone and your symptoms resolve (still finish the antibiotics)) Print Language: Nauruan Disposition Disposition: Home, Self Care
[2024-03-04 01:38] LABS: Mucous, Urine 0 SEEN /hpf (<or=2+)
[2024-03-04] MEDS: Ondansetron 4 MG/2 ML Vial IV (01:39)
[2024-03-04] MEDS: Morphine 4 MG/ML Syringe IV (01:39)
[2024-03-04 01:59] LABS: Absolute Lymphocyte Count 1.96 X10^3/uL (0.83-4.51); Absolute Neutrophil Count 5.4 X10^3/uL (2.0-7.7); Basophil# 0.06 X10^3/uL; Basophil% 0.7 % (0-1); Eosinophil# 0.47 X10^3/uL; Eosinophils% 5.5 % (0-5); Hematocrit 31.9 % (37-47); Hemoglobin 10.3 g/dL (12.0-15.0); Lymphocyte # 1.96 X10^3/ul (0.83-4.51); Lymphocyte % 22.8 % (19-41); Mean Corp Hgb Conc 32.3 g/dL (32-36); Mean Corpuscular Hgb 28.8 pg (27.0-32.0); Mean Corpuscular Volume 89.1 fL (81-99); Mean Platelet Vol. 9.7 fl (6.2-12.0); Monocyte% 8.1 % (0-10); NRBC Flagged by Analyzer 0 % (0-5); Neutrophil # 5.36 X10^3/uL (2.7-7.7); Neutrophil % 62.4 % (47-70); Platelet Count 351 K/mm3 (150-450); RBC Distribution Width CV 13.2 % (11.6-14.6); RBC Distribution Width SD 42.5 fl (35.1-43.9); Red Blood Count 3.58 M/mm3 (4.2-5.4); White Blood Count 8.6 K/mm3 (4.4-11.0)
[2024-03-04 02:06] LABS: Anion Gap 11 (5-15); BUN 32 mg/dL (7-18); BUN/Creat Ratio 22.2 RATIO (10-20); Calcium,Total 9.4 mg/dL (8.5-10.1); Chloride 104 mmol/L (98-107); Creatinine, Serum 1.44 mg/dL (0.55-1.02); EST Glomerular Filtration Rate 38 mL/min (>60); Est Glom Filt Rate - Afr Amer 46 mL/min (>60); Glucose 190 mg/dL (74-106); Sodium Level 136 mmol/L (136-145)
[2024-03-04 02:07] VITALS: BP 171/66; PULSE 73; RESP 16; TEMP 36.6; O2SAT 100
[2024-03-04 02:19] LABS: Glucose, Dipstick Normal (Normal); Ketone-Dipstick Negative (Negative); Leukocyte Esterase-Dipstick 500 /ul (Negative); Nitrite-Dipstick Negative (Negative); Occult Blood-Urine 50 /ul (Negative); Protein-Dipstick 15 mg/dl (Negative); Specific Gravity, Urine 1.015 (1.002-1.030); Urine Bilirubin Dipstick Negative (Negative); Urine Urobilinogen Normal (Normal)
[2024-03-04 02:39] LABS: Bacteria 2+ /hpf (None Seen); Color, Urine Yellow (Yellow); Red Blood Cells-Urine 5-10 SEEN /hpf (0-5); Squamous Epithelial Cells - UA 5-10 SEEN /hpf (5-10); Urine Clarity Clear (Clear); White Blood Cells 10-25 SEEN /hpf (0-5)
[2024-03-04 02:40] LABS: Hyaline Cast 0-5 SEEN /lpf (0-5)
[2024-03-04] MEDS: Metoclopramide 10 MG/2 ML Vial 2.5 MG IV (02:56)
[2024-03-04] MEDS: Ciprofloxacin 500 MG Tablet PO (02:56)
[2024-03-04] MEDS: fentaNYL 100 MCG/2 ML Ampul 50 MCG IV (02:58)
[2024-03-04] MEDS: Ceftriaxone 1 GM/50 ML BAG IV (02:59)
[2024-03-04 03:01] VITALS: BP 169/56; PULSE 60; RESP 15; TEMP 36.5; O2SAT 97
[2024-03-04 03:43] VITALS: BP 174/62; PULSE 61; RESP 18; TEMP 36.5; O2SAT 100
== END 2024-03-04 03:49 | disposition home or self-care (01) ==
PROVIDERS: Emergency Provider Emergency Medicine; PCP Student in an Organized Health Care Education/Training Program; Visit Provider Emergency Medicine
DX: N13.2 Hydronephrosis with renal and ureteral calculous obstruction (principal); E11.9 Type 2 diabetes mellitus without complications; N23 Unspecified renal colic; N39.0 Urinary tract infection, site not specified; Z85.3 Personal history of malignant neoplasm of breast; E78.5 Hyperlipidemia, unspecified; I10 Essential (primary) hypertension; Z79.899 Other long term (current) drug therapy; Z79.84 Long term (current) use of oral hypoglycemic drugs; Z90.49 Acquired absence of other specified parts of digestive tract; Z90.11 Acquired absence of right breast and nipple
CPT/HCPCS: 74176; 80048; 81001; 85025; 87086; 87088; 87186; 96365; 96375; 99283; J7040; A4216; J2405

== ENCOUNTER → 2024-04-09 | Outpatient (CLI) | payer MEDICARE, OTHER, SELFPAY ==
--- NOTE | 2024-04-09 11:01 | CT_ITS ---
STUDY: CT ABDOMEN AND PELVIS WITHOUT CONTRAST REASON FOR EXAM: Female, 73 years old. CALCULUS OF URETER. Prior right mastectomy and right breast prostheses. RADIATION DOSAGE (If Supplied By Facility): CTDIvol = ( 6.35 ) mGy, DLP = ( 323.47 ) mGycm TECHNIQUE: Transaxial images were obtained from the dome of the diaphragm to the symphysis pubis without oral contrast, and without intravenous contrast. Sagittal and coronal images were reconstructed. Individualized dose optimization techniques were used for this CT. COMPARISON: Comparison is made with prior study dated March 04, 2024. FINDINGS: Right breast prosthesis is seen. The visualized lung bases are unremarkable. Coronary artery calcification. Normal liver. The patient is status post cholecystectomy. Normal spleen. Normal pancreas. Normal bilateral adrenal glands. Normal right kidney. Normal left kidney. The previously seen right ureteral calculus is not seen at this time. There is a small hiatal hernia. Normal small intestine. Moderate amount of fecal material is seen in the colon. The appendix is visualized and appears normal. There is atherosclerotic calcification of the abdominal aorta and its major visceral branches, without a demonstrated aneurysm. Normal inferior vena cava. Normal retroperitoneum. Normal urinary bladder. There is absence of the uterus consistent with a prior hysterectomy. Small bilateral inguinal hernias containing fat. There are mild degenerative changes of the visualized lumbar spine. CT/Abdomen/Pelvis without Cont IMPRESSION: No obstructive uropathy is seen. Electronically Signed: Mitch Newman MD at 12:17 EDT ,
== END | disposition home or self-care (01) ==
LOC: CT 10:59
PROVIDERS: PCP Student in an Organized Health Care Education/Training Program; Referring Provider Urology; Visit Provider Urology
DX: N20.1 Calculus of ureter (principal)
CPT/HCPCS: 74176